=== PATIENT | male | born 1960 | race Caucasian/White ===

== ENCOUNTER → 2016-11-08 | Outpatient (CLI) | payer BC ==
[~2016-11-08] MED LIST: ADV250INH INH; ALBU17IN INH
[2016-11-08 11:03] LABS: MEAN CORPUSCULAR HEMOGLOBIN 28.6 pg (27.0-33.0); MEAN CORPUSCULAR HGB CONC 32.2 g/dl (32.0-36.5); MEAN CORPUSCULAR VOLUME 88.8 fl (80.0-96.0); RED CELL DISTRIBUTION WIDTH 12.6 % (11.5-14.5); WHITE BLOOD COUNT 7.8 K/mm3 (4.0-10.0)
[2016-11-08 11:24] LABS: ALBUMIN 3.8 GM/DL (3.2-5.2); ALBUMIN/GLOBULIN RATIO 1.19 (1.00-1.93); ALKALINE PHOSPHATASE 67 U/L (45-117); ALT/SGPT 34 U/L (12-78); ANION GAP 7 MEQ/L (8-16); AST/SGOT 24 U/L (15-37); BILIRUBIN,TOTAL 0.5 MG/DL (0.2-1.0); BLOOD UREA NITROGEN 15 MG/DL (7-18); CALCIUM LEVEL 8.5 MG/DL (8.5-10.1); CARBON DIOXIDE LEVEL 26 MEQ/L (21-32); CHLORIDE LEVEL 107 MEQ/L (98-107); CHOLESTEROL LEVEL 228 MG/DL (<200); CREATININE FOR GFR 0.97 MG/DL (0.70-1.30); GLOMERULAR FILTRATION RATE > 60.0 (>56); GLUCOSE, FASTING 87 MG/DL (70-105); POTASSIUM SERUM 4.7 MEQ/L (3.5-5.1); SODIUM LEVEL 140 MEQ/L (136-145); TRIGLYCERIDES LEVEL 195 MG/DL (<150)
== END ==
LOC: M LAB 09:55
PROVIDERS: ATTEND Physician Assistant
DX: R06.09 Other forms of dyspnea (principal); E78.2 Mixed hyperlipidemia; J44.9 Chronic obstructive pulmonary disease, unspecified; Z72.0 Tobacco use

== ENCOUNTER → 2018-01-23 | Outpatient (REF) | payer BC | LOC: M SFHCLERA 16:04 | DX: R10.9 Unspecified abdominal pain (principal) ==

== ENCOUNTER → 2018-01-23 | Outpatient (CLI) | payer BC | LOC: M LRY 15:42 | DX: R06.02 Shortness of breath (principal); J84.10 Pulmonary fibrosis, unspecified | CPT/HCPCS: 87086 ==

== ENCOUNTER → 2018-10-30 | Outpatient (CLI) | payer BC ==
[2018-10-30 10:40] LABS: BASO # 0.1 10^3/uL (0.0-0.2); BASO % 0.8 % (0.0-1.0); EOS # 0.3 10^3/uL (0.0-0.50); EOS % 3.5 % (0.0-3.0); HEMATOCRIT 51.3 % (42.0-52.0); HEMOGLOBIN 16.6 g/dl (13.5-17.5); LYMPH # 2.3 10^3/uL (1.5-4.5); LYMPH % 25.4 % (24.0-44.0); MEAN CORPUSCULAR HEMOGLOBIN 29.1 pg (27.0-33.0); MEAN CORPUSCULAR HGB CONC 32.4 g/dl (32.0-36.5); MEAN CORPUSCULAR VOLUME 89.8 fl (80.0-96.0); MONO # 0.7 10^3/uL (0.0-0.8); MONO % 7.6 % (0.0-5.0); NEUTROPHILS # 5.5 10^3/uL (1.8-7.7); NEUTROPHILS % 61.6 % (36.0-66.0); PLATELET COUNT, AUTOMATED 247 10^3/uL (150-450); RED BLOOD COUNT 5.71 10^6/uL (4.30-6.10)
[2018-10-30 11:11] LABS: ALT/SGPT 29 U/L (12-78); BILIRUBIN,TOTAL 0.6 MG/DL (0.2-1.0); BLOOD UREA NITROGEN 16 MG/DL (7-18); CALCIUM LEVEL 8.9 MG/DL (8.5-10.1); CARBON DIOXIDE LEVEL 30 MEQ/L (21-32); CHLORIDE LEVEL 106 MEQ/L (98-107); CHOLESTEROL LEVEL 230 MG/DL (<200); CHOLESTEROL RISK RATIO 5.111 (<5); CREATININE FOR GFR 1.04 MG/DL (0.70-1.30); GLOMERULAR FILTRATION RATE > 60.0 (>56); GLUCOSE, FASTING 92 MG/DL (70-100); HDL CHOLESTEROL 45 MG/DL (>40); LDL CHOLESTEROL 146.2 MG/DL (<100); NON-HDL-C 185 MG/DL; POTASSIUM SERUM 4.6 MEQ/L (3.5-5.1); SODIUM LEVEL 141 MEQ/L (136-145); TOTAL PROTEIN 6.7 GM/DL (6.4-8.2); TRIGLYCERIDES LEVEL 194 MG/DL (<150)
[2018-10-30 12:51] LABS: HEMOGLOBIN A1c 5.9 %
== END ==
LOC: M LAB 09:32
PROVIDERS: ATTEND Nurse Practitioner Family
DX: Z72.0 Tobacco use (principal)

== ENCOUNTER 2018-12-01 18:53 | Emergency (ER) | payer BC ==
[~2018-12-01] VITALS: Ht 162.6 cm; Wt 91.8 kg
[2018-12-01 19:55] LABS: BASO # 0.1 10^3/uL (0.0-0.2); BASO % 0.5 % (0.0-1.0); EOS # 0.7 10^3/uL (0.0-0.50); EOS % 6.9 % (0.0-3.0); HEMATOCRIT 49.6 % (42.0-52.0); HEMOGLOBIN 16.2 g/dl (13.5-17.5); LYMPH # 1.3 10^3/uL (1.5-4.5); LYMPH % 12.5 % (24.0-44.0); MEAN CORPUSCULAR HEMOGLOBIN 29.1 pg (27.0-33.0); MEAN CORPUSCULAR HGB CONC 32.7 g/dl (32.0-36.5); MEAN CORPUSCULAR VOLUME 89.2 fl (80.0-96.0); MONO # 0.8 10^3/uL (0.0-0.8); MONO % 7.5 % (0.0-5.0); NEUTROPHILS # 7.6 10^3/uL (1.8-7.7); NEUTROPHILS % 71.7 % (36.0-66.0); PLATELET COUNT, AUTOMATED 239 10^3/uL (150-450); RED BLOOD COUNT 5.56 10^6/uL (4.30-6.10); WHITE BLOOD COUNT 10.7 10^3/uL (4.0-10.0)
[2018-12-01 20:28] LABS: ALBUMIN 4.2 GM/DL (3.2-5.2); ALT/SGPT 38 U/L (12-78); BILIRUBIN,DIRECT 0.2 MG/DL (0.0-0.2); BILIRUBIN,TOTAL 0.6 MG/DL (0.2-1.0); BLOOD UREA NITROGEN 13 MG/DL (7-18); CALCIUM LEVEL 9.2 MG/DL (8.5-10.1); CARBON DIOXIDE LEVEL 30 MEQ/L (21-32); CHLORIDE LEVEL 105 MEQ/L (98-107); CPK CREATINE PHOSPHOKINASE 263 U/L (39-308); CREATININE FOR GFR 1.05 MG/DL (0.70-1.30); GLOMERULAR FILTRATION RATE > 60.0 (>56); GLUCOSE, FASTING 97 MG/DL (70-100); LIPASE 171 U/L (73-393); POTASSIUM SERUM 4.3 MEQ/L (3.5-5.1); SODIUM LEVEL 140 MEQ/L (136-145); TOTAL PROTEIN 6.8 GM/DL (6.4-8.2)
[2018-12-01] MEDS ORDERED: methylPREDNISolone INJ 125 MG/2 ML VIAL (J2930) IV ONE (20:30)
[2018-12-01 20:44] LABS: ERYTHROCYTE SEDIMENTATION RATE 1 mm/hr (0-20)
[2018-12-01] MEDS ORDERED: NS 1,000 ML IV ONE (21:45)
[2018-12-01] MEDS ORDERED: diphenhydrAMINE INJ 50MG/ML VIAL (J1200) IV ONE (21:45)
[2018-12-01] MEDS ORDERED: RANI15TA PO (22:52)
[2018-12-01] MEDS ORDERED: BENA25CA4 PO (22:52)
[2018-12-01] MEDS ORDERED: PRED20TA PO (22:52)
[2018-12-01 23:03] VITALS: BP 122/75
== END 2018-12-01 23:05 | disposition home or self-care (01) ==
LOC: M ED 18:53
DX: R21 Rash and other nonspecific skin eruption (principal); T50.995A Adverse effect of other drugs, medicaments and biological substances, initial encounter; X58.XXXA Exposure to other specified factors, initial encounter; Y92.89 Other specified places as the place of occurrence of the external cause; I10 Essential (primary) hypertension; J44.9 Chronic obstructive pulmonary disease, unspecified; J45.909 Unspecified asthma, uncomplicated; F41.9 Anxiety disorder, unspecified; E78.5 Hyperlipidemia, unspecified; Z79.899 Other long term (current) drug therapy
CPT/HCPCS: 80048; 80076; 82550; 83605; 83690; 85025; 85652; 86140; 87040; 99284; J1200; J2930

== ENCOUNTER → 2018-12-19 | Outpatient (CLI) | payer BC ==
[~2018-12-19] MED LIST changes: +BENA25CA4 PO; +PRED20TA PO; +RANI15TA PO
--- NOTE | 2018-12-19 16:32 | REP ---
Prostate sonography: History: Elevated PSA. Sonographic findings: Trans rectal prostate sonography demonstrates unremarkable seminal vesicles. Prostate gland is heterogeneously enlarged with calcifications and cystic changes noted. Glandular dimensions are measured at 4.9 x 3.3 x 6.0 cm with a calculated glandular volume of 42.4 ml. Transrectal sonographic guidance is provided to Dr. Willett who performed trans rectal ultrasound guided needle biopsy procedure . Electronically Signed by Eugene Sullivan MD 12/19/2018 04:23 P
== END ==
LOC: M SMT PRO 08:16
PROVIDERS: ATTEND Urology
DX: D40.0 Neoplasm of uncertain behavior of prostate (principal); R97.20 Elevated prostate specific antigen [PSA]
CPT/HCPCS: 76872; 76942; G0416

== ENCOUNTER → 2019-01-08 | Outpatient (CLI) | payer BC ==
--- NOTE | 2019-01-12 20:27 | SLEEPHOME ---
DATE OF PROCEDURE: 01/08/2019 ORDERED BY: Dr. Jeffers Diagnostic home sleep testing was performed due to concern for the obstructive sleep apnea syndrome in this patient with a history of excessive somnolence, irregular breathing in sleep and nonrestorative sleep. For testing a nocturnal T3 respiratory monitoring device was used. Continuous record was made of pulse, oxygen saturation, airflow, chest, abdominal strain and body position. 9 hours and 59 minutes of data were reviewed. There were 6 hours and 3 minutes marked as time in bed. During the interval marked time in bed, there were 95 respiratory events identified of 10 seconds in duration or greater for a respiratory event index of 15.7. The events were primarily obstructive. Baseline pulse rate 73, pulse rate ranged 57-199. Baseline saturation 89%. Lowest saturation seen 79%. Testing was performed in both the supine and nonsupine positions. IMPRESSION: Abnormal home sleep testing with repetitive respiratory events and oxygen desaturations to 79% with a respiratory event index of 15.7 is consistent with the obstructive sleep apnea syndrome. RECOMMENDATIONS: The patient should be encouraged to undergo a formal sleep evaluation.
== END ==
LOC: M SLEEP HO 11:33
PROVIDERS: ATTEND Internal Medicine Pulmonary Disease
DX: G47.30 Sleep apnea, unspecified (principal)

== ENCOUNTER → 2019-02-06 | Outpatient (CLI) | payer BC ==
--- NOTE | 2019-02-06 12:50 | REP ---
PET/CT: HISTORY: Solitary pulmonary nodule. COMPARISONS: Comparison CT study [facility] January 01, 2019 showed a 1.1 cm right upper lobe pulmonary nodule. TECHNIQUE: 45 minutes following the intravenous injection of a 9.33 mCi dose of F-18 FDG, three-dimensional PET scintigraphy is acquired from the skull base to the proximal thighs. Triplanar noncontrast CT scanning is acquired through the same anatomic range for attenuation correction, and image registration with scan parameters optimized to minimize radiation exposure to the patient. PET scintigraphy and CT datasets were fused and displayed on a workstation with multiplanar and projection display capability. PET/CT FINDINGS: There is no observable hypermetabolic uptake in the nodular opacity in the right upper lobe observed posteromedially adjacent to the mediastinum. This nodule is less visible on accompanying CT images than on the screening chest CT study from January 01. Maximum standard uptake value here is 1.18. There is a nodular opacity in the right inferior perihilar region of the right lower lobe, which is also not hypermetabolic. No discernible FDP accumulation is seen. This measures a centimeter in diameter. Maximum SUV value is 1.05. There is a granulomatous calcification in the left upper lobe and there are granulomatous calcifications in the spleen. There is no other abnormal hypermetabolic uptake within the thorax. In the abdomen and pelvis, there is normal distribution of radiotracer. No abnormal adrenal uptake is seen. There is some focally increased uptake just to the right of midline at the level of the anus. This may relate to hemorrhoids or anal inflammation or neoplasm. Maximum standard uptake value here is 7.26. Head and neck soft tissues are unremarkable. IMPRESSION: 1. There is no hypermetabolic uptake in the right upper lobe nodule. There is a second nodule visible in the right lower lobe perihilar region. This is also not metabolically active. There are granulomatous calcifications in the left upper lobe of the lung and in the spleen. 2. Incidental focus of hypermetabolic uptake is seen in the region of the anus, to the right of midline. This should be correlated clinically. Hemorrhoid, anal inflammation, or neoplasm could produce this finding. Electronically Signed by Eugene Sullivan MD 02/06/2019 02:24 P
== END ==
LOC: M PLARAD 08:31
PROVIDERS: ATTEND Internal Medicine Pulmonary Disease
DX: R91.1 Solitary pulmonary nodule (principal)
CPT/HCPCS: 78815; A9552

== ENCOUNTER → 2019-07-23 | Outpatient (CLI) | payer BC | LOC: M LRY 13:05 | PROVIDERS: ATTEND Physician Assistant | DX: R05 Cough (principal) ==

== ENCOUNTER → 2019-10-01 | Outpatient (CLI) | payer BC ==
[2019-10-02 14:06] LABS: PSA % FREE 16.2 % (.); PSA FREE 1.07 ng/mL; PSA TOTAL 6.6 ng/mL (0.0-4.0)
== END ==
LOC: M LAB 10:42
PROVIDERS: ATTEND Urology
DX: R97.20 Elevated prostate specific antigen [PSA] (principal)

== ENCOUNTER → 2019-12-10 | Outpatient (CLI) | payer BC ==
[2019-12-11 16:10] LABS: PSA TOTAL 3.7 ng/mL (0.0-4.0)
== END ==
LOC: M LAB 11:58
PROVIDERS: ATTEND Urology
DX: R97.20 Elevated prostate specific antigen [PSA] (principal)

== ENCOUNTER → 2020-05-07 | Outpatient (CLI) | payer BC ==
[~2020-05-07] MED LIST changes: +ALBU8.5H; +ATOR1TAB21; +BREO1INH3; +SERT50TA29; +SPIR1AER
== END ==
LOC: M LABSMTC 13:25
PROVIDERS: ATTEND Anesthesiology
DX: Z01.818 Encounter for other preprocedural examination (principal)
CPT/HCPCS: C9803; U0003

== ENCOUNTER 2020-05-12 07:07 | Day surgery (SDC) | payer BC ==
[~2020-05-12] VITALS: Ht 162.6 cm; Wt 93.4 kg
[~2020-05-12 07:07] MED LIST changes: +LIDOCAINE 2% 100MG/5ML SDV (FOR ANES.) As Ordered ONE; +NS 1,000 ML IV ONE; +propofoL 200 MG/20 ML VIAL As Ordered ONE
--- NOTE | 2020-05-12 08:15 | ROOR ---
Patient Name: Crow Jarvis Procedure Date: 05/12/2020 7:52 AM Date of : 1960 Age: 59 Room: [facility] Gender: Male Note Status: Finalized Procedure: Colonoscopy Indications: High risk colon cancer surveillance: Personal history of colonic polyps, Last colonoscopy: May 2015 Providers: George AMOS MD Referring MD: Becka CRAFT Requesting Provider: Medicines: Monitored Anesthesia Care Complications: No immediate complications. Procedure: Pre-Anesthesia Assessment: - The heart rate, respiratory rate, oxygen saturations, blood pressure, adequacy of pulmonary ventilation, and response to care were monitored throughout the procedure. The Colonoscope was introduced through the anus and advanced to the cecum, identified by appendiceal orifice and ileocecal valve. The colonoscopy was performed without difficulty. The patient tolerated the procedure well. The quality of the bowel preparation was good. Findings: The perianal and digital rectal examinations were normal. Multiple medium-mouthed diverticula were found in the sigmoid colon. Three sessile polyps were found in the descending colon. The polyps were diminutive in size. These polyps were removed with a cold snare. Resection and retrieval were complete. Small Internal Hemorrhoids. The exam was otherwise without abnormality on direct and retroflexion views. Impression: - Diverticulosis in the sigmoid colon. - Three diminutive polyps in the descending colon, removed with a cold snare. Resected and retrieved. - Small Internal Hemorrhoids. - The examination was otherwise normal on direct and retroflexion views. Recommendation: - Repeat colonoscopy in 3 - 5 years for surveillance based on pathology results. - Telephone endoscopist for pathology results in 2 weeks. George Amos MD George AMOS MD 05/12/2020 8:15:17 AM Electronically signed by George AMOS MD Number of Addenda: 0 Note Initiated On: 05/12/2020 7:52 AM Estimated Blood Loss: Estimated blood loss: none.
[2020-05-12 08:37] VITALS: BP 113/70
== END 2020-05-12 08:40 | disposition home or self-care (01) ==
LOC: M OPP 07:07
PROVIDERS: ATTEND Internal Medicine Gastroenterology
DX: Z12.11 Encounter for screening for malignant neoplasm of colon (principal); Z86.010 Personal history of colon polyps; R63.5 Abnormal weight gain; K57.30 Diverticulosis of large intestine without perforation or abscess without bleeding; K64.8 Other hemorrhoids; G47.30 Sleep apnea, unspecified; J44.9 Chronic obstructive pulmonary disease, unspecified; F17.210 Nicotine dependence, cigarettes, uncomplicated; Z79.899 Other long term (current) drug therapy

== ENCOUNTER → 2020-08-29 | Outpatient (CLI) | payer BC ==
[~2020-08-29] MED LIST changes: -ALBU8.5H; +ALBU8.5H INH; -ATOR1TAB21; +ATOR1TAB21 PO; -BREO1INH3; +BREO1INH3 INH; -LIDOCAINE 2% 100MG/5ML SDV (FOR ANES.) As Ordered ONE; -NS 1,000 ML IV ONE; -SERT50TA29; +SERT50TA29 PO; -SPIR1AER; +SPIR1AER INH; -propofoL 200 MG/20 ML VIAL As Ordered ONE
== END ==
LOC: M LABSMTC 13:00
PROVIDERS: ATTEND Anesthesiology
DX: Z01.812 Encounter for preprocedural laboratory examination (principal); Z20.822 Contact with and (suspected) exposure to COVID-19

== ENCOUNTER 2020-09-02 14:41 | Day surgery (SDC) | payer OTHER ==
[~2020-09-02] VITALS: Ht 162.6 cm; Wt 93.0 kg
[~2020-09-02 14:41] MED LIST changes: +LIDOCAINE 1% MDV 20ML VIAL SQ PRN; +LR 1,000 ML IV ONE; +ceFAZolin SOD 2 GM in IV 1 EA IV ONE
--- OUTSIDE RECORDS SUMMARY | 2020-09-02 14:44 | CCD | Continuity of Care Document ---
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 Name Role Phone Becka Durbin AUTM Problems Description No Information Available Social History Type Date Description Comments Sex Unknown ETOH Use Currently consumes alcohol Tobacco Use Start: Unknown End: Unknown Patient is a former smoker Allergies, Adverse Reactions, Alerts Description No Known Drug Allergies Medications Active Medications SIG Qnty Indications Ordering Provide r Date Keflex 500mg Capsules 4 tabs 1 hour prior to dental procedure 4caps Veronica Boyle MD 02/2021 Percocet 5-325mg Tablets 1-2 tabs every 4- 6 hours prn/pain 6tabs S92.335D Veronica Boyle MD 2020 Sertraline HCL 50mg Tablets Unknown Atorvastatin Calcium 20mg Tablets Unknown Breo Ellipta 200-25mcg/Inh Aerosol Unknown Spiriva Respimat 1.25mcg/Act Aerosol Unknown Albuterol Sulfate HFA 108(90Base) mcg/Act Aerosol Unknown Immunizations Description No Information Available Vital Signs Date Vital Result Comment 08/18/2020 3:48pm Height 62 inches 5'2" Weight 210.00 lb BMI (Body Mass Index) 38.4 kg/m2 Results Description No Information Available Procedures Date Code Description Status 08/26/2020 37761 Apply Splint Short Leg Completed 08/20/2020 86451 Apply Splint Short Leg Completed 08/18/2020 02342 X-Ray Ankle Complete Completed 08/18/2020 84443 Apply Splint Short Leg Completed Medical Devices Description No Information Available Encounters Type Date Location Provider Dx Diagnosis Office Visit 08/26/2020 10:30a [place] Veronica Boyle MD S8 2.62xA Disp fx of lateral malleolus of left fibula, init S93.05xA Dislocation of left ankle thuy int, initial encounter Office Visit 08/20/2020 5:00p [place] [facility] [place] S82.62xA Disp fx of lateral malleolus of left fibula, init S93.05xA Dislocation of left ankle thuy int, initial encounter Assessments Date Code Description Provider 08/26/2020 S82.62xA Displaced fracture o f lateral malleolus of left fibula, initial encounter for closed fracture Veronica Boyle MD 08/26/2020 S93.05xA Dislocation of left ankle joint, initial encounter Veronica Boyle MD 08/20/2020 S82.62xA Displaced fracture o f lateral malleolus of left fibula, initial encounter for closed fracture [facility] [place] 08/20/2020 S93.05xA Dislocation of left ankle joint, initial encounter [facility] [place] 08/18/2020 S82.62xA Displaced fracture o f lateral malleolus of left fibula, initial encounter for closed fracture [facility] [place] 08/18/2020 S93.05xA Dislocation of left ankle joint, initial encounter [facility] [place] Plan of Treatment Future Appointment(s):* 09/03/2020 12:20 pm - Veronica Boyle MD 08/26/2020 - Veronica Boyle MD* S82.62xA Displaced fracture of lateral malleolus of left fibula, initial encounter for closed fracture* New Orders:* Surgery, Ordered: 08/26/20 * Follow up:* post op * S93.05xA Dislocation of left ankle joint, initial encounter Functional Status Description No Information Available Mental Status Description No Information Available Referrals Description No Information Available
--- OUTSIDE RECORDS SUMMARY | 2020-09-02 14:45 | CCD | Continuity of Care Document ---
Author Author Crow BOYLE MD Organization Unknown Address [address] [place] [address], [address] [address] Phone [phone] Care Team Providers Care Vegetable Picker Name Role Phone Becka Durbin AUTM [phone] Problems Description No Information Available Social History [...] Information Available Procedures Date Code Description Status 08/20/2020 85346 Apply Splint Short Leg Completed 08/18/2020 12840 X-Ray Ankle Complete Completed 08/18/2020 44185 Apply Splint Short Leg Completed Medical Devices Description No Information Available Encounters Type Date Location Provider Dx Diagnosis Office Visit 08/20/2020 5:00p [facility] [place] S82.62xD Disp fx of lateral malleolus of l fibula, 7thD S93.05xD Dislocation of left ankle thuy int, subsequent encounter Office Visit 08/18/2020 3:15p [facility] [place] S82.62xA Disp fx of lateral malleolus of left fibula, init S93.05xA Dislocation of left ankle thuy int, initial encounter Assessments Date Code Description Provider 08/26/2020 S82.62xD Displaced fracture o f lateral malleolus of left fibula, subsequent encounter for closed fracture with routine healing Veronica Boyle MD 08/26/2020 S93.05xD Dislocation of left ankle joint, subsequent encounter Veronica Boyle MD 08/20/2020 S82.62xD Displaced fracture o f lateral malleolus of left fibula, subsequent encounter for closed fracture with routine healing [facility] [place] 08/20/2020 S93.05xD Dislocation of left ankle joint, subsequent encounter [facility] [place] 08/18/2020 S82.62xA Displaced fracture o f lateral malleolus of left fibula, initial encounter for closed fracture [facility] [place] 08/18/2020 S93.05xA Dislocation of left ankle joint, initial encounter [facility] [place] Plan of Treatment 08/26/2020 - Veronica Boyle MD* S82.62xD Displaced fracture of lateral malleolus of left fibula, subsequent encounter for closed fracture with routine healing* New Orders:* Surgery, Ordered: 08/26/20 * Follow up:* post op * S93.05xD Dislocation of left ankle joint, subsequent encounter Functional Status Description No Information Available Mental Status Description No Information Available Referrals Description No Information Available
--- OUTSIDE RECORDS SUMMARY | 2020-09-02 14:45 | CCD ---
Author Author [facility] Organization [facility] Address Unknown Phone Unavailable Care Team Providers Care Private Advisor Name Role Phone DRAZEK, I ELZBIETA PA Unavailable Unavailable DRAZEK, I ELZBIETA PA Unavailable Unavailable DRAZEK, I ELZBIETA PA Unavailable Unavailable DRAZEK, I ELZBIETA PA Unavailable Unavailable DRAZEK, I ELZBIETA PA Unavailable Unavailable DRAZEK, I ELZBIETA PA Unavailable Unavailable DRAZEK, I ELZBIETA PA Unavailable Unavailable DRAZEK, I ELZBIETA PA Unavailable Unavailable DRAZEK, I ELZBIETA PA Unavailable Unavailable DRAZEK, I ELZBIETA PA Unavailable Unavailable DRAZEK, I ELZBIETA PA Unavailable Unavailable DRAZEK, I ELZBIETA PA Unavailable Unavailable DRAZEK, I ELZBIETA PA Unavailable Unavailable DRAZEK, I ELZBIETA PA Unavailable Unavailable DRAZEK, I ELZBIETA PA Unavailable Unavailable DRAZEK, I ELZBIETA PA Unavailable Unavailable DRAZEK, I ELZBIETA PA Unavailable Unavailable DRAZEK, I ELZBIETA PA Unavailable Unavailable DRAZEK, I ELZBIETA PA Unavailable Unavailable DRAZEK, I ELZBIETA PA Unavailable Unavailable DRAZEK, I ELZBIETA PA Unavailable Unavailable DRAZEK, I ELZBIETA PA Unavailable Unavailable DRAZEK, I ELZBIETA PA Unavailable Unavailable DRAZEK, I ELZBIETA PA Unavailable Unavailable DRAZEK, I ELZBIETA PA Unavailable Unavailable DRAZEK, I ELZBIETA PA Unavailable Unavailable DRAZEK, I ELZBIETA PA Unavailable Unavailable DRAZEK, I ELZBIETA PA Unavailable Unavailable DRAZEK, I ELZBIETA PA Unavailable Unavailable AZEK, I ELZBIETA PA Unavailable Unavailable Nino Boyle MD Unavailable Unavailable Nino Boyle MD Unavailable Unavailable VanNino garcia MD Unavailable Unavailable Nino Boyle MD Unavailable Unavailable Nino Boyle MD Unavailable Unavailable Nino Boyle MD Unavailable Unavailable Nino Boyle MD Unavailable Unavailable Nino Boyle MD Unavailable Unavailable Nino Boyle MD Unavailable Unavailable Nino Boyle MD Unavailable Unavailable Nino Boyle MD Unavailable Unavailable Nino Boyle MD Unavailable Unavailable Nino Boyle MD Unavailable Unavailable Nino Boyle MD Unavailable Unavailable Nino Boyle MD Unavailable Unavailable Nino Boyle MD Unavailable Unavailable Nino Boyle MD Unavailable Unavailable Nino Boyle MD Unavailable Unavailable Nino Boyle MD Unavailable Unavailable Nino Boyle MD Unavailable Unavailable Nino Boyle MD Unavailable Unavailable Nino Boyle MD Unavailable Unavailable Nino Boyle MD Unavailable Unavailable Nino Boyle MD Unavailable Unavailable Nino Boyle MD Unavailable Unavailable Nino Boyle MD Unavailable Unavailable Nino Boyle MD Unavailable Unavailable Nino Boyle MD Unavailable Unavailable Nino Boyle MD Unavailable Unavailable Nino Boyle MD Unavailable Unavailable Nino Boyle MD Unavailable Unavailable Nino Boyle MD Unavailable Unavailable Nino Boyle MD Unavailable Unavailable Nino Boyle MD Unavailable Unavailable Nino Boyle MD Unavailable Unavailable Nino Boyle MD Unavailable Unavailable Nino Boyle MD Unavailable Unavailable Nino Boyle MD Unavailable Unavailable Nino Boyle MD Unavailable Unavailable Nino Boyle MD Unavailable Unavailable Nino Boyle MD Unavailable Unavailable Nino Boyle MD Unavailable Unavailable Jeffers, Joel Hopkins MD Unavailable Unavailable Jeffers, Joel Hopkins MD Unavailable Unavailable Jeffers, Joel Hopkins MD Unavailable Unavailable Jeffers, Joel Hopkins MD Unavailable Unavailable Jeffers, Joel Hopkins MD Unavailable Unavailable Jeffers, Joel Hopkins MD Unavailable Unavailable Jeffers, Joel Hopkins MD Unavailable Unavailable Jeffers, Joel Hopkins MD Unavailable Unavailable Jeffers, Joel Hopkins MD Unavailable Unavailable Jeffers, Joel Hopkins MD Unavailable Unavailable Jeffers, Joel Hopkins MD Unavailable Unavailable Jeffers, Joel Hopkins MD Unavailable Unavailable Jeffers, Joel Hopkins MD Unavailable Unavailable Jeffers, Joel Hopkins MD Unavailable Unavailable Jeffers, Joel Hopkins MD Unavailable Unavailable Jeffers, Joel Hopkins MD Unavailable Unavailable Jeffers, Joel Hopkins MD Unavailable Unavailable Jeffers, Joel Hopkins MD Unavailable Unavailable Jeffers, Joel Hopkins MD Unavailable Unavailable Jeffers, Joel Hopkins MD Unavailable Unavailable Jeffers, Joel Hopkins MD Unavailable Unavailable Jeffers, Joel Hopkins MD Unavailable Unavailable Jeffers, Joel Hopkins MD Unavailable Unavailable Jeffers, Joel Hopkins MD Unavailable Unavailable Jeffers, Joel Hopkins MD Unavailable Unavailable Jeffers, Joel Hopkins MD Unavailable Unavailable Jeffers, Joel Hopkins MD Unavailable Unavailable Jeffers, oJel Hopkins MD Unavailable Unavailable Jeffers, Joel Hopkins MD Unavailable Unavailable Jeffers, Joel Hopkins MD Unavailable Unavailable Jeffers, Joel Hopkins MD Unavailable Unavailable Jeffers, Joel Hopkins MD Unavailable Unavailable Jeffers, Joel Hopkins MD Unavailable Unavailable Jeffers, Joel Hopkins MD Unavailable Unavailable Jeffers, Joel Hopkins MD Unavailable Unavailable Jeffers, Joel Hopkins MD Unavailable Unavailable Jeffers, Joel Hopkins MD Unavailable Unavailable Jeffers, Joel Hopkins MD Unavailable Unavailable Jeffers, Joel Hopkins MD Unavailable Unavailable Jeffers, Joel Hopkins MD Unavailable Unavailable Jeffers, Joel Hopkins MD Unavailable Unavailable JeffersJoel MD Unavailable Unavailable Joel Jeffers MD Unavailable Unavailable Zeyad, Joel Hopkins MD Unavailable Unavailable Jeffers, Joel Hopkins MD Unavailable Unavailable Jeffers, Joel Hopkins MD Unavailable Unavailable Jeffers, Joel Hopkins MD Unavailable Unavailable Jeffers, Joel Hopkins MD Unavailable Unavailable JeffersJoel MD Unavailable Unavailable Jeffers, Joel Hopkins MD Unavailable Unavailable Joel Jeffers MD Unavailable Unavailable Pavel Kennedy MD Unavailable Unavailable Pavel Kennedy MD Unavailable Unavailable Pavel Kennedy MD Unavailable Unavailable Clarence Jean DO Unavailable Unavailable Clarence Jean DO Unavailable Unavailable Clarence Jean DO Unavailable Unavailable Clarence Jean DO Unavailable Unavailable Jeffers, Joel Hopkins MD Unavailable Unavailable Jeffers, Joel Hopkins MD Unavailable Unavailable Joel Jeffers MD Unavailable Unavailable Jeffers, Joel Hopkins MD Unavailable Unavailable Jeffers, Joel Hopkins MD Unavailable Unavailable JeffersJoel MD Unavailable Unavailable Jeffers, Joel Hopkins MD Unavailable Unavailable Jeffers, Joel Hopkins MD Unavailable Unavailable Jeffers, Joel Sandeep MD Unavailable Unavailable Jeffers, Joel Hopkins MD Unavailable Unavailable Jeffers, Joel Hopkins MD Unavailable Unavailable Jeffers, Joel Hopkins MD Unavailable Unavailable Jeffers, Joel Hopkins MD Unavailable Unavailable Jeffers, Joel Hopkins MD Unavailable Unavailable Jeffers, Joel Hopkins MD Unavailable Unavailable Jeffers, Joel Hopkins MD Unavailable Unavailable Jeffers, Joel Hopkins MD Unavailable Unavailable Jeffers, Joel Hopkins MD Unavailable Unavailable Jeffers, Joel Hopkins MD Unavailable Unavailable Jeffers, Joel Hopkins MD Unavailable Unavailable Jeffers, Joel Hopkins MD Unavailable Unavailable Jeffers, Joel Hopkins MD Unavailable Unavailable Jeffers, Joel Hopkins MD Unavailable Unavailable Jeffers, Joel Hopkins MD Unavailable Unavailable Jeffers, Joel Hopkins MD Unavailable Unavailable Jeffers, Joel Hopkins MD Unavailable Unavailable Jeffers, Joel Hopkins MD Unavailable Unavailable Jeffers, Joel Hopkins MD Unavailable Unavailable Jeffers, Joel Hopkins MD Unavailable Unavailable Jeffers, Joel Hopkins MD Unavailable Unavailable Jeffers, Joel Hopkins MD Unavailable Unavailable Jeffers, Joel Hopkins MD Unavailable Unavailable Jeffers, Joel Hopkins MD Unavailable Unavailable Jeffers, Joel Hopkins MD Unavailable Unavailable Jeffers, Joel Hopkins MD Unavailable Unavailable Jeffers, Joel Hopkins MD Unavailable Unavailable Jeffers, Joel Hopkins MD Unavailable Unavailable Jeffers, Joel Hopkins MD Unavailable Unavailable Jeffers, Joel Hopkins MD Unavailable Unavailable Jeffers, Joel Hopkins MD Unavailable Unavailable Jeffers, Joel Hopkins MD Unavailable Unavailable Jeffers, Joel Hopkins MD Unavailable Unavailable Jeffers, Joel Hopkins MD Unavailable Unavailable Jeffers, Joel Hopkins MD Unavailable Unavailable Jeffers, Joel Hopkins MD Unavailable Unavailable Jeffers, Joel Hopkins MD Unavailable Unavailable Jeffers, Joel Hopkins MD Unavailable Unavailable Jeffers, Joel Hopkins MD Unavailable Unavailable Jeffers, Joel Hopkins MD Unavailable Unavailable Jeffers, Joel Hopkins MD Unavailable Unavailable Jeffers, Joel Hopkins MD Unavailable Unavailable Re-disclosure Warning The records that you are about to access may contain information from federally-assisted alcohol or drug abuse programs. If such information is present, then the following federally mandated warning applies: This information has been disclosed to you from records protected by federal confidentiality rules (42 CFR part 2). The federal rules prohibit you from making any further disclosure of this information unless further disclosure is expressly permitted by the written consent of the person to whom it pertains or as otherwise permitted by 42 CFR part 2. A general authorization for the release of medical or other information is NOT sufficient for this purpose. The Federal rules restrict any use of the information to criminally investigate or prosecute any alcohol or drug abuse patient.The records that you are about to access may contain highly sensitive health information, the redisclosure of which is protected by Article 27-F of the [place] Public Health law. If you continue you may have access to information: Regarding HIV / AIDS; Provided by facilities licensed or operated by the [facility] Office of Mental Health; or Provided by the [facility] Office for People With Developmental Disabilities. If such information is present, then the following [facility] mandated warning applies: This information has been disclosed to you from confidential records which are protected by state law. State law prohibits you from making any further disclosure of this information without the specific written consent of the person to whom it pertains, or as otherwise permitted by law. Any unauthorized further disclosure in violation of state law may result in a fine or penitentiary sentence or both. A general authorization for the release of medical or other information is NOT sufficient authorization for further disc losure. Allergies and Adverse Reactions Type Description Substance Reaction Status Data Source(s ) Drug allergy Drug allergy terbinafine (From Lamisil AT) Unknown React ion [facility] Drug allergy Drug allergy starch (From Lamisil AT) Unknown Reaction [facility] Drug allergy Drug allergy talc (From Lamisil AT) Unknown Reaction [facility] Terbinafine Terbinafine terbinafine 250 MG Oral Tablet blisters/red Active eCW1 ([facility]) Terbinafine Terbinafine terbinafine 250 MG Oral Tablet blisters/red Active eCW1 ([facility]) Family History Family Member Name Family Member Gender Family Member Status Date o f Status Description Data Source(s) Unknown Unknown Problem [facility] ([facility]) Unknown Unknown Problem [facility] ([facility] Unknown Male Problem [facility] ([facility]) suddenly - suspected to be cardiova scular Encounters Encounter Providers Location Date Indications Data Source(s ) Outpatient Attender: Nino Boyle MD Physical Therap y 08/26/2020 09:30:00 AM EST [facility] ([facility]) OFFICE OUTPATIENT VISIT 15 MINUTES Attender: ELZBIETA RED Phys ical Therapy 08/20/2020 04:00:00 PM EST [facility] ([facility]) OFFICE OUTPATIENT NEW 30 MINUTES Attender: ELZBIETA RED Physic al Therapy 08/18/2020 02:15:00 PM EST [facility] ([facility]) Emergency Attender: Clarence Jean DOAttender: Cristo muro MD CPSCAORT-ED 08/14/2020 04:24:00 PM EST - 08/14/2020 10:00:00 PM EST ANKLE INJURY [facility] ANKLE INJURY Patient discharged. Outpatient Attender: Sandeep Ordonez/Suresh/Lico/Pippa hernandezl 06/03/2020 07:45:00 AM EST [facility] ([facility]) Unknown [address] [id number] 04/23/2020 12:00:00 AM EDT eCW1 ([facility]) Unknown [address] [id number] 12/13/2019 12:00:00 AM EDT eCW1 ([facility]) Outpatient Referrer: Sandeep Jeffers MD 11/28/2019 03:19:0 0 PM EDT [facility] Outpatient Referrer: Sandeep Jeffers MD 11/26/2019 08:21:0 0 AM EDT [facility] Outpatient Referrer: Sandeep Jeffers MD 11/23/2019 10:53:0 0 AM EDT [facility] Outpatient Referrer: Sandeep Jeffers MD 11/02/2019 12:21:0 0 PM EDT [facility] Outpatient Referrer: Sandeep Jeffers MD 10/31/2019 10:24:0 0 AM EDT [facility] Outpatient Referrer: Sandeep Jeffers MD 10/31/2019 10:23:0 0 AM EDT [facility] Outpatient Referrer: Sandeep Jeffers MD 10/08/2019 02:59:0 0 PM EDT [facility] [address] [address] 10/05/2019 12:00:00 AM EDT eCW1 ([facility]) [facility] [address] [id number] 10/04/2019 12:00:00 AM EDT eCW1 ([facility]) [facility] [address] [id number] 10/03/2019 12:00:00 AM EDT eCW1 ([facility]) [facility] [address] [address] 10/01/2019 12:00:00 AM EDT eCW1 ([facility]) Outpatient Referrer: Sandeep Jeffers MD 09/18/2019 03:28:0 0 PM EDT [facility] Outpatient Referrer: Sandeep Jeffers MD 09/18/2019 03:27:0 0 PM EDT [facility] [address] [place] [phone] 09/17/2019 12:00:00 AM EDT eCW1 ([facility]) [facility] [address] [place] [phone] 09/17/2019 12:00:00 AM EDT eCW1 ([facility]) [facility] [address] [place] [phone] 08/14/2019 12:00:00 AM EST eCW1 ([facility]) [facility] [address] [place] [phone] 08/14/2019 12:00:00 AM EST eCW1 ([facility]) [facility] [address] [place] [phone] 07/30/2019 12:00:00 AM EST eCW1 ([facility]) [facility] [address] [address] 07/23/2019 12:00:00 AM EST eCW1 ([facility]) [facility] [address] [place] [phone] 07/09/2019 12:00:00 AM EST eCW1 ([facility]) Medications Medication Brand Name Start Date Product Form Dose Route Admi nistrative Instructions Pharmacy Instructions Status Indications Reaction Description Data Source(s) Cephalexin 500 MG Oral Capsule [Keflex] Keflex 08/18/2020 12:00:00 AM EST active [facility] ([facility]) Acetaminophen 325 MG / Oxycodone Hydrochloride 5 MG Or al Tablet [Percocet] Percocet 08/18/2020 12:00:00 AM EST active MED[facility] ([facility]) 60 ACTUAT Albuterol 0.09 MG/ACTUAT Metered Dose Inhaler Albu terol Sulfate HFA 05/29/2020 12:00:00 AM EST RESPIRATORY active MEDENT ([facility], ) 30 ACTUAT fluticasone furoate 0.2 MG/ACT UAT / vilanterol 0.025 MG/ACTUAT Dry Powder Inhaler [Breo] Breo Ellipta 12/10/2019 12:00:00 AM EDT RESPIRATORY active MEDENT ([facility], ) Sertraline 50 MG Oral Tablet Sertraline HCl 50 MG Sertraline HCl 50 MG 10/04/2019 12:00:00 AM EDT 1.0 {tablet} active Sertraline HCl 50 MG eCW1 ([facility]) Sertraline 50 MG Oral Tablet Sertraline HCl 50 MG Sertraline HCl 50 MG 10/04/2019 12:00:00 AM EDT active 1 tablet eCW1 ([facility]) Sertraline 50 MG Oral Tablet Sertraline HCl 50 MG Sertraline HCl 50 MG 10/04/2019 12:00:00 AM EDT 1.0 {tablet} active Sertraline HCl 50 MG eCW1 ([facility]) Suprep Bowel Prep Kit Suprep Bowel Prep Kit 09/24/2019 12:00:00 AM EDT active MED[facility] ([facility], ) Magnesium Hydroxide 80 MG/ML Oral Suspension Milk Of Magnesi a 09/24/2019 12:00:00 AM EDT ORAL active M EDENT ([facility], ) Doxycycline Monohydrate 100 MG Oral Capsule Doxycycline Mcleod hydrate 100 MG 07/23/2019 12:00:00 AM EST suspended 1 capsule eCW1 ([facility]) PredniSONE 10 MG PredniSONE 10 MG 07/23/2019 12:00:00 AM EST active 4 tabs qday x 3, 3 tab qday x 3, 2 tabs qday x 3, 1 ta b qday x 3 days eCW1 ([facility]) Doxycycline Monohydrate 100 MG Oral Capsule Doxycycline Mcleod hydrate 100 MG 07/23/2019 12:00:00 AM EST active 1 capsule eCW1 ([facility]) Prednisone 10 MG Oral Tablet PredniSONE 10 MG PredniSONE 10 MG 07/23/2019 12:00:00 AM EST suspended 4 tabs qday x 3, 3 tab qday x 3, 2 tabs qday x 3, 1 tab qday x 3 days eCW1 ([facility]) Prednisone 10 MG Oral Tablet PredniSONE 10 MG PredniSONE 10 MG 07/23/2019 12:00:00 AM EST suspended Predn iSONE 10 MG eCW1 ([facility]) Doxycycline Monohydrate 100 MG Oral Capsule Doxycycline Mcleod hydrate 100 MG 07/23/2019 12:00:00 AM EST 1.0 {capsule} suspend ed Doxycycline Monohydrate 100 MG eCW1 ([facility]) Doxycycline Monohydrate 100 MG Oral Capsule Doxycycline Mcleod hydrate 100 MG 07/23/2019 12:00:00 AM EST 1.0 {capsule} suspend ed Doxycycline Monohydrate 100 MG eCW1 ([facility]) Prednisone 10 MG Oral Tablet PredniSONE 10 MG PredniSONE 10 MG 07/23/2019 12:00:00 AM EST suspended Predn iSONE 10 MG eCW1 ([facility]) Insurance Providers Payer name Policy type / Coverage type Policy ID Covered democrat ID Covered democrat's relationship to anand Policy Anand Plan Information CARE WORKS [id number] SP [id number] [employer] [id number] SP [id number] BCBS MATE[place]Z O [id number] SP [id number] [place] 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 [id number] [facility] [id number] 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 [id number] [employer] [place] [id number] 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 [id number] [employer] BCBS B [id number] S [id number] EXCE[employer] BC-BS PPO [id number] SP [id number] BCBS [place] HMO [id number] SP [id number] [employer] BC-BS PPO [id number] SP [id number] BCBS [place] HMO [id number] SP [id number] BS [place] Commercial [id number] Self [id number] ANSI-Commercial [id number] EXCELLUS C [id number] Self [id number] [employer] Health Maintenance Organization (HMO) [id number] Self [id number] BC/BS Family Health Plus Medigap Part B [id number] Self [id number] Excell[employer] BCBS Health Maintenance Organization (HMO) [id number] Family Dependent [id number] ANSI-Commercial [id number] ANSI-Commercial [id number] ANSI-Commercial [id number] BS [employer] [id number] Self [id number] ANSI-Commercial [id number] BS [employer] Commercial [id number] Self [id number] ANSI-Commercial [id number] [employer]/[place] Commercial [id number] Self [id number] BCBS [employer] U/[place] Commercial [id number] Self [id number] ANSI-Commercial [id number] ANSI-Commercial [id number] HMO BLUE [id number] SP [id number] HMO BLUE [id number] SP [id number] BCBS Excell[employer] Ppo U/W Commercial [id number] Self [id number] BS [place] Commercial [id number] Self [id number] [place]BS [place] PPO 302/307 [id number] SP [id number] HMO BLUE [id number] EXCELLUS BC-BS PPO 306 [id number] BCBS [place] PPO 302/307 [id number] SP [id number] HMO BLUE [id number] SP [id number] [facility] PLAN [id number] SP [id number] [place] [id number] SP [id number] HMO BLUE [id number] SP [id number] BCBS [place] PPO 302/307 [id number] SP [id number] Surgeries/Procedures Procedure Description Date Indications Data Source(s) Apply Splint Short Leg 08/26/2020 12:00:00 AM EST [facility] ([facility]) Apply Splint Short Leg 08/20/2020 12:00:00 AM EST [facility] ([facility]) Apply Splint Short Leg 08/18/2020 12:00:00 AM EST [facility] ([facility]) RADEX ANKLE COMPLETE MINIMUM 3 VIEWS 08/18/2020 12:00: 00 AM EST [facility] ([facility]) FX Lateral Malleolus (Distal Fibula) W/O Manipulation 08/18/2020 12:00:00 AM EST [facility] ([facility]) RADEX ANKLE COMPLETE MINIMUM 3 VIEWS X-RAY EXAM OF ANKLE 10/2020 12:00:00 AM [facility] [address] X-RAY EXAM CHEST 1 VIEW 08/14/2020 12:00:00 AM [facility] ECG ROUTINE ECG W/LEAST 12 LDS TRCG ONLY W/O I&R ELECTROCARD IOGRAM TRACING 08/14/2020 12:00:00 AM [facility] ANTIBODY SCREEN RBC EACH SERUM TECHNIQUE RBC ANTIBODY SCREEN 08/14/2020 12:00:00 AM [facility] [address] SARS-COV-2 COVID-19 AMP PRB 08/14/2020 12:00:00 AM [facility] THROMBOPLASTIN TIME PARTIAL PLASMA/WHOLE BLOOD THROMBOPLASTI N TIME PARTIAL 08/14/2020 12:00:00 AM [facility] PROTHROMBIN TIME PROTHROMBIN TIME 08/14/2020 12:00:00 AM [facility] BLOOD COUNT COMPLETE AUTO&AUTO DIFRNTL WBC COUNT COMPLETE CB C W/AUTO DIFF WBC 08/14/2020 12:00:00 AM [facility] COMPREHENSIVE METABOLIC PANEL COMPREHEN METABOLIC PANEL 10/2020 12:00:00 AM [facility] Non-covered item or service NON-COVERED ITEM OR SERVICE 10/2020 12:00:00 AM [facility] Injection, propofol, 10 mg 08/14/2020 12:00:00 AM [facility] Injection, fentanyl citrate, 0.1 mg 08/14/2020 12:00:0 0 AM [facility] Injection, hydromorphone, up to 4 mg 08/14/2020 12:00: 00 AM [facility] [address] MOD SED SAME PHYS/QHP EA 08/14/2020 12:00:00 AM [facility] [address] MOD SED SAME PHYS/QHP 5/>YRS 08/14/2020 12:00:00 AM [facility] COLLECTION VENOUS BLOOD VENIPUNCTURE ROUTINE VENIPUNCTURE 12:00:00 AM [facility] ARTHROCENTESIS ASPIR&/INJECTION INTERM JT/BURSA DRAIN/INJ ALBERTO INT/BURSA W/O US 08/14/2020 12:00:00 AM [facility] EMERGENCY DEPT VISIT HIGH SEVERITY&THREAT FUNJ EMERGENCY DE PT VISIT 08/14/2020 12:00:00 AM [facility] Colonoscopy W/ Poly 05/12/2020 12:00:00 AM EST TUAN ([facility], ) NEB/MDI RX INITIAL 07/23/2019 12:00:00 AM EST [facility] ([facility]) Albuterol, inhalation solution, fda-appr michelle final product, non-compounded, administered through dme, unit dose, 1 mg 07/23/2019 12:00:00 AM EST [facility] ([facility]) Ipratropium bromide, inhalation solution , fda-approved final product, non- compounded, administered through dme, unit dose form, per milligram 07/23/2019 12:00:00 AM [place] [id number] ([facility]) Results ID Date Data Source [id number] 08/29/2020 12:35:00 PM [facility] Name Value Range Interpretation Code Description Data Kavya rce(s) Supporting Document(s) SARS coronavirus 2 RNA Not Detected [facility] This lab was ordered by [facility] and reported by [facility]. ID Date Data Source [id number] 08/14/2020 04:24:00 PM [facility] Name: BETY JARVIS [facility] Rec #: [id number] 0 : 1960 Age/Sex: 60M Date of Service: 08/14/20 PHYSICIAN CHART Physician Documentation [facility] Name: Bety Jarvis Age: 60 yrs Sex: Male : 1960 Arrival Date: 08/14/2020 Time: 16:24 Bed 1 Private MD: Shanna Out of ED Physician Clarence Jean HPI: 08/14 16:27 This 60 yrs old Male presents to ER with complaints of left jam2 ankle pain. 16:27 The patient presents with decreased range of motion, a jam2 deformity, an injury, pain, swelling, tenderness. The co mplaints affect the left ankle. Onset: The symptoms/episode began/occurred just prior to arrival. Context: resulted from mis-step into [employer] truck. Associated signs and symptoms: Pertinent negatives: numbness, tingling, weakness. Modifying factors: The symptoms are alleviated by OTC meds, the symptoms are aggravated by weight bearing, movement. Severity of symptoms: At their worst the symptoms were moderate, in the emergency department the symptoms are unchanged. The patient was offered pain meds while waiting - pain meds were given. The patient has not experienced similar symptoms in the past. Historical: - Allergies: Lamisil AT; Rash; - PMHx: Chronic obstructive lung disease; - PSHx: Hernia repair; Circumcision; - Med Reconciliation:: Yellow Alert: The patient's home medication list is partly complete. However, additional information is required to complete list. Medications reviewed, completed by nurse verbally from patient/family. - Immunization history: Patient is not sure when last tetanus shot was. - Advance directive: There is no existing advanced directive. Information offered. - Family History:: mother : unknown medical history. Father : unknown medical history. - Social History: Smoking status (Tobacco): Patient states they are a former tobacco smoker, quit smoking Quit 1 week ago, Smoked 1 PPD ago. Preferred Language: [place]. ROS: 16:31 Constitutional: Negative for fever, chills. Cardiovascular: jam2 Negative for chest pain. MS/extremity: Positive for decreased range of motion, deformity, pain, swelling, tenderness. All other systems are negative. Exam: 16:31 Constitutional: This is a well developed, well nourished jam2 patient who is awake, alert, and in no acute distress. 16:31 Constitutional: This is a well developed, well nourished patient who is awake, alert, and in no acute distress. Head/Face: Normocephalic, atraumatic. Eyes: Pupils equal round and reactive to light, extra-ocular motions intact. Conjunctiva and sclera are non-icteric and not injected. Periorbital areas with no swelling, redness, or edema. ENT: Oropharynx with no redness, swelling, or masses, exudates, or evidence of obstruction, uvula midline. Mucous membranes moist. Cardiovascular: Regular rate and rhythm with a normal S1 and S2. No gallops, murmurs, or rubs. No JVD. No pulse deficits. Respiratory: Lungs have equal breath sounds bilaterally, clear to auscultation. No rales, rhonchi or wheezes noted. No increased work of breathing, no retractions or nasal flaring. Abdomen/GI: Soft, non-tender, with normal bowel sounds. No distension. No rebound, rigidity, or guarding. No organomegaly. Skin: Warm, dry with normal turgor. Normal color with no rashes, no lesions, and no evidence of cellulitis. Psych: Awake, alert, with orientation to person, place and time. Behavior, mood, and affect are within normal limits. 16:31 Musculoskeletal/extremity: Circulation is intact in all extremities. Sensation intact. Left ankle severely deformed and angulated with the entire foot rotated laterally. Intact distal pulses sensation and strength. Vital Signs: 16:36 BP 131 / 83; Pulse 68; Resp 17; Pulse Ox 93% 0 lpm ; cmf 18:36 BP 128 / 81; Pulse 72; Resp 14; Pulse Ox 95% ; tb7 19:23 BP 124 / 69; Pulse 69; Resp 14; Pulse Ox 97% on R/A; tb7 19:53 BP 139 / 70; Pulse 71; Resp 17; Temp 97.8(TE); Pulse Ox 97% tb7 on 2 lpm NC; Pain 7/10; 20:04 BP 108 / 77; Pulse 69; Resp 17; Pulse Ox 97% on 2 lpm NC; tb7 20:04 BP 107 / 73; Pulse 71; Resp 16; Pulse Ox 96% on 4 lpm NC; tb7 20:09 BP 143 / 71; Pulse 75; Resp 20; Pulse Ox 96% on 4 lpm NC; tb7 20:11 BP 132 / 78; Pulse 79; Resp 23; Pulse Ox 95% on 4 lpm NC; tb7 20:14 BP 132 / 78; Pulse 79; Resp 23; Pulse Ox 95% on 4 lpm NC; tb7 20:19 BP 134 / 81; Pulse 69; Resp 15; Pul se Ox 97% on 4 lpm NC; tb7 20:23 BP 128 / 80; Pulse 72; Resp 18; Pulse Ox 97% on 4 lpm NC; tb7 20:29 BP 129 / 76; Pulse 74; Resp 14; Pulse Ox 95% on R/A; tb7 20:34 BP 111 / 68; Pulse 76; Resp 15; Pulse Ox 95% on 4 lpm NC; tb7 20:37 Weight 92.99 kg (R); Height 5 ft. 1 in. (154.94 cm) (R); tb7 20:41 BP 132 / 85; Pulse 77; Resp 18; Pulse Ox 97% on 4 lpm NC; tb7 20:46 BP 130 / 74; Pulse 74; Resp 17; Pulse Ox 96% on 2 lpm NC; tb7 20:51 BP 134 / 91; Pulse 74; Resp 18; Pulse Ox 96% on R/A; tb7 20:56 BP 143 / 78; Pulse 74; Resp 17; Pulse Ox 95% on R/A; Pain tb7 0/10; 21:06 BP 134 / 79; Pulse 74; Resp 20; Pulse Ox 94% on R/A; Pain tb7 0/10; 21:21 BP 134 / 80; Pulse 68; Resp 18; Temp 97.7(TE); Pulse Ox 95% tb7 on R/A; Pain 0/10; 20:37 Body Mass Index 38.73 (92.99 kg, 154.94 cm) tb7 20:04 TCO2 44 tb7 20:09 ETCO2 15 tb7 20:19 ETCO2 24 tb7 20:23 ETCO2 16 tb7 20:29 ETCO2 12 tb7 20:34 ETCO2 45 tb7 20:46 ETCO2 27 tb7 20:51 ETCO2 40 tb7 20:56 ETCO2 40 tb7 Procedures: 17:01 Joint Treatment: injection of left ankle using Lidocaine, jam2 Removed bloody fluid, Patient tolerated well. I performed a hematoma block by injecting 8cc of 1% lidocaine without epinephrine into the medial left ankle. Complications were none. Patient tolerated procedure well. Reduction: of the left ankle, using traction, manipulation, Immobilized with Splint. Patient tolerated well. Post reduction film - reveals improved alignment. 20:43 Pre-procedure: Informed consent obtained, ASA physical rc3 classification: II - mild/mod systemic disease that does not interfere with daily routines, Airway assessment: able to hyperextend neck, able to maintain airway, can open mouth without difficulty, Mallampati classification of tongue size: II - faucial pillars and soft palate can be visualized, but uvula is masked by the base of the tongue, Medications employed: Ketamine and propofol see sedation summary sheet, Post-procedure assessment: the patient is moderately sedated, a reversal agent was not used. MDM: 16:25 Patient medically screened. jam2 18:47 Data reviewed: vital signs, nurses notes, lab test jam2 result(s), EKG, radiologic studies, CT scan, plain films. ECG: The ECG on this patient demonstrates no evidence of ischemia, normal sinus rhythm. ED course: The patient has been stable while here. He comes in with a mechanical misstep while getting into his [employer] truck with a obviously angulated, fracture left ankle. He was neurovascularly intact. I did reduce the fracture with improved alignment. The remainder of his work-up is unremarkable. No other injuries. Plan will be to consult orthopedics for definitive management. 19:24 ED course: Portable chest x-ray read: Negative. Left ankle rc3 x-ray read: There is fracture subluxation of the ankle with lateral subluxation of the talus fracture involves the lateral malleolus. Repeat left ankle x-ray after reduction: Casted fracture subluxation with persistent subluxation. All images also reviewed by me.. 19:26 ECG: The ECG on this patient demonstrates Other Normal 3 sinus rhythm, rate 64, normal axis, levels with no ST elevations or depressions. 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 Was stepping out of his truck slipped and fell and sustained lateral fibula fracture with talus dislocation. He received hematoma block and reduction still with some persistent subluxation of the talus. Awaiting orthopedic consultation. Dr. Hughes has been contacted and is in the operating room. 20:40 ED course: Patient seen by Dr. Hughes, would like to [facility] procedurally sedate the patient and reattempt reduction as well as splinting with cast material rather than Ortho-Glass to he feels unstable ankle fractures have improved alignment with this technique. Patient was consented for sedation n.p.o. for many hours he states he is received procedural sedation in the past and never had any untoward outcomes. He was taken to the resuscitation bay full monitoring in place advanced airway equipment assembled including suction [id number] and intubation equipment. Initially he was sedated with 45 mg ketamine and propofol mixed together administered by me. He sedated fairly well remains somewhat talkative during the procedure hemodynamically stable. Reduction was performed with Dr. Hughes. Still with some subluxation and thought to be an un stable ankle. Patient was partially recovered and orthopedics decided to attempt reduction again after obtaining additional supplies from the operating room. He received 25 mg IV propofol x3 by me. He was minimally talkative during this but did allow for repeat reduction. He remained hemodynamically stable throughout no apnea or aspiration. At this time anticipate uneventful recovery. There was a single hypotensive blood pressure read however the patient was moving his arm during this and I believe this was artifact. Upon resting his arm and immediately repeat blood pressure was normal.. 20:51 ED course: Postreduction film overall improved alignment. [facility] This was reviewed with Dr. Hughes at the bedside. Still suboptimal alignment states the patient will still need surgery but can go home tonight.. 21:46 ED course: He has been ambulating with crutches to the [facility] bathroom. I did write for a walker as well has little bit of difficulty using crutches and is definitely nonweightbearing on the left ankle. At this time capillary refill is normal her toes sensation is normal. We reviewed symptoms of compartment syndrome encouraged him to follow-up immediately if they occur. Will provide contact information for orthopedic group will be happy to see him. Patient does live in [place] he is uncertain if he wants to see orthopedics at their follow-up with our group. I encouraged him to contact Ortho tomorrow for follow-up in the next few days.. 08/14 16:26 Order name: Cbc With Auto Differential; Complete Time: 17:00jam2 08/14 19:21 Interpretation: WBC 12.9; HGB 16.0; HCT 47.1; PLT 255. [facility] 08/14 16:26 Order name: COMMET; Complete Time: 17:15 jam2 08/14 19:21 Interpretation: NA 140; K 4.4; CL 109; CO2 26.0; GAP 5.0; 3 BUN 23; CREAT 1.21; Glom Filtration 61; GLU 92; CA 9.2; Corrected CA 9.2; T Bili 0.4; SGOT(AST) 21; SGPT(ALT) 40; ALK PHOS 94; TP 7.4; ALB 4.0. 08/14 16:26 Order name: PT; Complete Time: 17:00 [facility] 08/14 19:23 Interpretation: PT 10.7; INR 0.93. [facility] 08/14 16:26 Order name: PTT; Complete Time: 17:00 [facility] 08/14 19:23 Interpretation: PTT 26.0. [facility] 08/14 16:26 Order name: Type And Screen; Complete Time: 18:31 [facility] 08/14 19:23 Interpretation: BLD TYPE B Positive. [facility] 08/14 16:52 Order name: POC COVID19 NOW; Complete Time: 17:00 [facility] 08/14 19:23 Interpretation: SARS-CoV-2 RNA Negative. [facility] 08/14 16:26 Order name: Ankle Lt Min 3 Views - Xray [facility] 08/14 16:26 Order name: Chest Xray - portable [facility] 08/14 16:26 Order name: Cardiology EKG Interpretation - Choose Reason [facility] for Test 08/14 17:00 Order name: Ankle Lt Min 3 Views - Xray [facility] 08/14 20:10 Order name: XR Ankle Lt Min. 3 Views [facility] 08/14 16:26 Order name: Iv Saline Lock; Complete Time: 16:30 [facility] 08/14 16:26 Order name: NPO; Complete Time: 16:30 [facility] 08/14 16:26 Order name: POC - Collect COVID-19 swab; Complete Time: [facility] 16:41 08/14 16:26 Order name: Emergency Room EKG Order - Use EKG Work-Up [facility]2 /Quick Select; Complete Time: 16:30 08/14 16:27 Order name: Ice Pack; Complete Time: 16:31 [facility] 08/14 17:00 Order name: Splint Posterior Short; Complete Time: 18:14 [facility] 08/14 19:39 Order name: Monitor - Cardiac, Place on Patient [facility] 08/14 19:39 Order name: Other Non-Medication Order:: EtCO2 monitor [facility] 08/14 19:39 Order name: Recheck Temperature; Complete Time: 21:06 [facility] 08/14 21:01 Order name: Crutches; Complete Time: 21:06 [facility] Dispensed Medications: 16:30 Drug: fentaNYL (PF) 100 mcg [fentanyl (PF) 50 mcg/mL екатерина injection solution (2 mL)] Route: IVP; Site: left wrist; 18:15 Follow up: Response: Pain is decreased екатерина 16:36 Drug: Ondansetron (PF) 4 mg [ondansetron HCl (PF) 4 mg/2 mL екатерина injection solution] Route: IV; Rate: calculated rate; Site: left wrist; 18:15 Follow up: Response: Nausea is decreased екатерина 18:15 Follow up: IV Status: Completed infusion; IV Intake: 2ml екатерина 16:57 Drug: HYDROmorphone 1 mg [hydromorphone 1 mg/mL injection екатерина syringe (1 mL)] Route: IVP; Site: left wrist; 18:15 Follow up: Response: Pain is decreased екатерина 20:03 Drug: NS 0.9% 1000 ml [sodium chloride 0.9 % injection tb7 solution] Route: IV; Rate: 999 mL/hr; Site: left forearm; 20:55 Follow up: IV Status: Completed infusion tb7 20:03 Drug: Ketalar 45 mg [Ketalar 50 mg/mL injection solution tb7 (0.9 mL)] Route: IVP; Site: left forearm; 20:55 Follow up: Response: No adverse reaction; Pain is decreased tb7 20:03 Drug: Diprivan 45 mg [Diprivan 10 mg/mL intravenous tb7 emulsion (4.5 mL)] Route: IVP; Site: left forearm; 20:40 Follow up: Response: No adverse reaction; 25 mg at 2024, 25 tb7 mg at 2026, 25 mg at 2031 20:25 Drug: Diprivan 25 mg [Diprivan 10 mg/mL intravenous tb7 emulsion (2.5 mL)] Route: IVP; Site: left forearm; 20:54 Follow up: Response: No adverse reaction tb7 20:27 Drug: Diprivan 25 mg [Diprivan 10 mg/mL intravenous tb7 emulsion (2.5 mL)] Route: IVP; Site: left forearm; 20:55 Follow up: Response: No adverse reaction tb7 20:32 Drug: Diprivan 25 mg [Diprivan 10 mg/mL intravenous tb7 emulsion (2.5 mL)] Route: IVP; Site: left forearm; 20:55 Follow up: Response: No adverse reaction tb7 22:00 Drug: ToGo ([place]) - HYDROcodone-acetaminophen 4 tabs tb7 [hydrocodone 5 mg-acetaminophen 325 mg tablet (4 tabs)] Route: PO; 22:00 Follow up: to go medication tb7 Disposition Summary: 08/14/20 21:48 Discharge Ordered Location: Home/Self Care rc3 Condition: Good rc3 Diagnosis - Left fibula fracture with talus dislocation rc3 Followup: rc3 - With: Milton Best MD - When: 2 - 3 days - Reason: Recheck today's complaints Discharge Instructions: - Discharge Summary Sheet rc3 - Ankle Fracture rc3 - Crutch Use, Adult rc3 - How to Use a Walker rc3 - Acute Compartment Syndrome rc3 - Sedation [facility] Discharge Instructions rc3 Forms: - Medication Reconciliation rc3 Signatures: Dispatcher [employer] EDCristo Boland MD MD jam2 Clarence Jean DO DO rc3 Kimberley Gonzalez, SUPERINTENDENT MENAGERIE SUPERINTENDENT MENAGERIE kb2 Emely Pacheco, Nikole Saldana RN, RN RN tb7 Corrections: (The following items were deleted from the chart) 20:21 20:10 XR Ankle Lt Min 3 Views+XRP.RAD.CAN ordered. EDMS EDMS 21:00 20:35 XR Ankle Lt Min 3 Views+XRP.RAD.CAN ordered. EDMS EDMS Name Value Range Interpretation Code Description Data Kavya rce(s) Supporting Document(s) ID Date Data Source [id number] 08/14/2020 04:24:00 PM [facility] Name: BETY JARVIS [facility] Rec #: [id number] 0 : 1960 Age/Sex: 60M Date of Service: 08/14/20 DISPOSITION SUMMARY Discharge Summary [facility] Name:Bety Jarvis Emergency Department Age:60 yrs Sex:Male :1960 Arrival:08/14/2020 16:24 Departure Date08/14/2020 Departure Time22:03 Private MD:Shanna Out of Outcome: Discharge Location: Home/Self Care Condition: Good Chief Complaint: Ankle Injury Diagnosis: - Left fibula fracture with talus dislocation Prescriptions: Follow up: Milton Best MD Custom Notes: <span>Try to elevate your leg above the level of the heart when at rest.</span><span> You can try ibuprofen as your first-line pain medication.</span><span> Do not drive or drink alcohol taking [place] for pain.</span><span> Use crutches or walker until cleared by orthopedics.</span><span> Please call orthopedics in the morning for follow-up in the next few days.</span>
<span>Return immediately for uncontrolled pain, numbness in your foot</span><span>, discoloration to her toes, any additional concerns</span>.
<span>You can take 1 [place] every 6 hours as needed for more significant pain. Due to the medications given to you tonight in emergency department</span><span>, do not start taking [place] until at least 3 AM.</span> Attending Physician: Clarence Jean DO Private MD: Shanna Out of [facility] Level Provider: Followup Physician: Milton Best MD Orders: Cbc With Auto Differential, COMMET, PT, PTT, Type And Screen, POC COVID19 NOW, fentaNYL (PF), Ankle Lt Min 3 Views - Xray, Chest Xray - portable, Cardiology EKG Interpretation - Choose Reason for Test, Ankle Lt Min 3 Views - Xray, Ankle Lt Min 3 Views - Xray, XR Ankle Lt Min. 3 Views, XR Ankle Lt Min 3 Views, Iv Saline Lock, NPO, POC - Collect COVID-19 swab, Ondansetron (PF), Emergency Room EKG Order - Use EKG Work-Up /Quick Select, Ice Pack, HYDROmorphone, Splint Posterior Short, Monitor - Cardiac, Place on Patient, NS 0.9%, Ketalar, Diprivan, Diprivan, Diprivan, Diprivan, HYDROcodone-acetaminophen, Other Non- Medication Order:: EtCO2 monitor, Recheck Temperature, Crutches Discharge Instruction: Discharge Summary Sheet, Ankle Fracture, Crutch Use, Adult, How to Use a Walker, Acute Compartment Syndrome, Sedation [facility] Discharge Instructions, Medication Reconciliation Name Value Range Interpretation Code Description Data Kavya rce(s) Supporting Document(s) ID Date Data Source [id number] 08/14/2020 04:24:00 PM [facility] Name: BETY JARVIS [facility] Rec #: [id number] 0 : 1960 Age/Sex: 60M Date of Service: 08/14/20 NURSE CHART Nurse's Notes [facility] Name: Bety Jarvis Age: 60 yrs Sex: Male : 1960 Arrival Date: 08/14/2020 Time: 16:24 Bed 1 Private MD: Shanna, Out of Diagnosis: Left fibula fracture with talus dislocation Presentation: 08/14 16:36 Transition of care: pat ient was not received from another [facility] setting of care. Presenting complaint: Patient states - Slipped and fell and injured his left ankle. Appears dislocated. Have you travelled in the last 30 days? No. Have you had contact with an individual with a confirmed diagnosis of Ebola or COVID-19? No. 16:36 Method Of Arrival: [facility] 16:36 Acuity: Urgent - 3 [facility] Triage Assessment: 16:37 SEPSIS SCREEN: A Confirmed or Suspected Infection is екатерина Unknown, their temperature is not <96.8 or >100.9, their heart rate is not >90, their RR is not >20, it is unknown if their WBC is <4 or >12, the patient does not have new or unexplained altered mental status. SIRS or Sepsis criteria is not present. Suicide Screening: Have you had thoughts of harming yourself or others? No. The patient appears to be uncomfortable, The patient is cooperative. Patient states the pain is currently a 7 / 10 The patient complains of pain in left medial malleolus, left Achilles and medial aspect of left heel. Patient denies any radiating pain. The patient states the pain began suddenly, The quality of the pain is described as aching, sharp, The pain is described as continuous, The pain is reportedly aggravated by repositioning. Historical: - Allergies: Lamisil AT; Rash; - PMHx: Chronic obstructive lung disease; - PSHx: Hernia repair; Circumcision; - Med Reconciliation:: Yellow Alert: The patient's home medication list is partly complete. However, additional information is required to complete list. Medications reviewed, completed by nurse verbally from patient/family. - Immunization history: Patient is not sure when last tetanus shot was. - Advance directive: There is no existing advanced directive. Information offered. - Family History:: mother : unknown medical history. Father : unknown medical history. - Social History: Smoking status (Tobacco): Patient states they are a former tobacco smoker, quit smoking Quit 1 week ago, Smoked 1 PPD ago. Preferred Language: [place]. Screenin:45 AUDIT 1. How often do you have a drink containing alcohol? екатерина 4 or more times a week (4 points) 2. How many standard drinks containing alcohol do you have on a typical day when drinking? 1 or 2 (0 points) 3. How often do you have five or more drinks on one occasion? Daily or almost daily (4 points). Drug Abuse Screening Test: 1. Have you used drugs other than those required for medical reasons? No (0 points), screen is complete, no risk. Abuse screen: Denies threats or abuse. Nutritional screening: No deficits noted. The patient has more than one active medical diagnosis or is on a medication that may impair gait. The patient has IV access (20 points). The patient is hooked up to a monitor (20 points). The patient's gait is impaired (20 points), cannot walk without assitance. The patient is at HIGH RISK for falls (Vale Scale = >45 pts). Fall prevention measures have been instituted. Side rails are up, patient is being reassessed frequently. Assessment: 16:38 Musculoskeletal: Circulation, motion, and sensation are all екатерина intact. Capillary Refill is < 3 seconds, brisk, in bilateral toes Bony deformity noted of medial aspect of left heel and left Achilles and left medial malleolus Pulses present in right posterior tibial artery, right dorsalis pedis artery, left posterior tibial artery and left dorsalis pedis artery, (+2). Vital Signs: 16:36 BP 131 / 83; Pulse 68; Resp 17; Pulse Ox 93% 0 lpm ; cmf 18:36 BP 128 / 81; Pulse 72; Resp 14; Pulse Ox 95% ; tb7 19:23 BP 124 / 69; Pulse 69; Resp 14; Pulse Ox 97% on R/A; tb7 19:53 BP 139 / 70; Pulse 71; Resp 17; Temp 97.8(TE); Pulse Ox 97% tb7 on 2 lpm NC; Pain 7/10; 20:04 BP 108 / 77; Pulse 69; Resp 17; Pulse Ox 97% on 2 lpm NC; tb7 20:04 BP 107 / 73; Pulse 71; Resp 16; Pulse Ox 96% on 4 lpm NC; tb7 20:09 BP 143 / 71; Pulse 75; Resp 20; Pulse Ox 96% on 4 lpm NC; tb7 20:11 BP 132 / 78; Pulse 79; Resp 23; Pulse Ox 95% on 4 lpm NC; tb7 20:14 BP 132 / 78; Pulse 79; Resp 23; Pulse Ox 95% on 4 lpm NC; tb7 20:19 BP 134 / 81; Pulse 69; Resp 15; Pulse Ox 97% on 4 lpm NC; tb7 20:23 BP 128 / 80; Pulse 72; Resp 18; Pulse Ox 97% on 4 lpm NC; tb7 20:29 BP 129 / 76; Pulse 74; Resp 14; Pulse Ox 95% on R/A; tb7 20:34 BP 111 / 68; Pulse 76; Resp 15; Pulse Ox 95% on 4 lpm NC; tb7 20:37 Weight 92.99 kg (R); Height 5 ft. 1 in. (154.94 cm) (R); tb7 20:41 BP 132 / 85; Pulse 77; Resp 18; Pulse Ox 97% on 4 lpm NC; tb7 20:46 BP 130 / 74; Pulse 74; Resp 17; Pulse Ox 96% on 2 lpm NC; tb7 20:51 BP 134 / 91; Pulse 74; Resp 18; Pulse Ox 96% on R/A; tb7 20:56 BP 143 / 78; Pulse 74; Resp 17; Pulse Ox 95% on R/A; Pain tb7 0/10; 21:06 BP 134 / 79; Pulse 74; Resp 20; Pulse Ox 94% on R/A; Pain tb7 0/10; 21:21 BP 134 / 80; Pulse 68; Resp 18; Temp 97.7(TE); Pulse Ox 95% tb7 on R/A; Pain 0/10; 20:37 Body Mass Index 38.73 (92.99 kg, 154.94 cm) tb7 20:04 TCO2 44 tb7 20:09 ETCO2 15 tb7 20:19 ETCO2 24 tb7 20:23 ETCO2 16 tb7 20:29 ETCO2 12 tb7 20:34 ETCO2 45 tb7 20:46 ETCO2 27 tb7 20:51 ETCO2 40 tb7 20:56 ETCO2 40 tb7 ED Course: 16:25 Nikole Torrse, LOREN is Primary Nurse. hmp 16:25 Patient arrived in ED. p 16:25 Cristo Kennedy MD is Attending Physician. [facility] 16:30 Labs drawn by ED staff. Inserted peripheral IV: 18 gauge in kb2 left wrist. 16:30 Ankle Lt Min 3 Views - Xray Sent. екатерина 16:30 Chest Xray - portable Sent. екатерина 16:36 An EKG was obtained and reviewed by Gracia Peterson MD. cmf 16:37 Triage completed. екатерина 16:38 Arm band placed on right wrist. Patient placed in exam room екатерина Patient has correct armband on for positive identification. 16:41 The patient was tested for COVID-19 and. kb2 16:53 [facility], Out of is Private Physician. екатерина 18:14 Ankle Lt Min 3 Views - Xray Sent. екатерина 19:19 Attending Physician role handed off by Cristo Kennedy, Jodyc3 19:19 Clarence Jean DO is Attending Physician. rc3 21:22 Radiology: a portable X-ray was completed at 20:25. tb7 21:22 Assist provider with reduction of left ankle using tb7 traction, manipulation, Set up for procedure. Performed by Milton Best MD Immobilized with plaster splint Patient tolerated well. 21:48 Milton Best MD is Referral Physician. rc3 21:53 Primary Nurse role handed off by Nikole Torres RN skb 21:53 Jared Almeida RN is Primary Nurse. jose carlos Gardiner Sedation: 19:53 Pre-procedure: Name of procedure: closed reduction of left tb7 ankle Consent: Informed consent obtained, The patient has been NPO for at least 8 hours, Equipment checklist: Crash cart is immediately available, continuous EtCO2 monitoring has been applied, Airways are available if needed, Suction is set up and working properly, a BVM is easily accessible, a thermometer is available, the patient is on continuous ECG monitoring, Reversal Agents are at the bedside. Defibrillator is in close proximity to the patient, BP Monitoring is applied, IV solutions are easily accessible, Oxygen delivery system is easily accessible, continuous SPO2 monitoring is applied, Baseline Assessment: a baseline set of vital signs have been obtained and documented. The cardiac rhythm is Normal Sinus Rhythm Patient does not have a history of adverse reaction to sedation. During procedure: A verbal confirmation to correct patient, procedure and site was performed. Procedure began at 20:03 Vitals signs have been checked and documented before and after each dose of medication or at a minimum, every 5 minutes during the procedure. The patient is continuously checked for changes in condition and/or untoward response and is unarousable to repeated or painful stimulation. No intervention(s) were required. EtCO2 23mmHg. 20:42 Post-procedure: Procedure ended at 20:35 the total tb7 procedure time was 31-45 minutes Vitals/PAR repeated every 15 minutes and as needed until PAR equals 8 or baseline score achieved. the cardiac rhythm is Nomal SInus Rhythm After the procedure their EtCO2 was 45mmHg. normal rate 12-20 breaths per minute (2 points) moves limbs but unable to sustain a 5 second head lift (1 point) Stable BP and pulse with no changes in previous two sets of readings (2 points) Awake or awakes easily when spoken to (2 points) The patients post-procedure PAR score is 7. 20:51 Post- procedure: The patient's behavior/vitals have returned tb7 to baseline and is able to tolerate PO fluids. normal rate 12-20 breaths per minute (2 points) >92% on room air (2 points) moves limbs but unable to sustain a 5 second head lift (1 point) Stable BP and pulse with no changes in previous two sets of readings (2 points) Awake or awakes easily when spoken to (2 points) The patients post-procedure PAR score is 9. 21:22 The patients post-procedure PAR score is 9. tb7 21:24 Pre-procedure: Baseline Assessment: Prior to the procedure tb7 their EtCO2 was 35mmHg. Administered Medications: 16:30 Drug: fentaNYL (PF) 100 mcg [fentanyl (PF) 50 mcg/mL екатерина injection solution (2 mL)] Route: IVP; Site: left wrist; 18:15 Follow up: Response: Pain is decreased [facility] 16:36 Drug: Ondansetron (PF) 4 mg [ondansetron HCl (PF) 4 mg/2 mL екатерина injection solution] Route: IV; Rate: calculated rate; Site: left wrist; 18:15 Follow up: Response: Nausea is decreased екатерина 18:15 Follow up: IV Status: Completed infusion; IV Intake: 2ml екатерина 16:57 Drug: HYDROmorphone 1 mg [hydromorphone 1 mg/mL injection екатерина syringe (1 mL)] Route: IVP; Site: left wrist; 18:15 Follow up: Response: Pain is decreased [facility] 20:03 Drug: NS 0.9% 1000 ml [sodium chloride 0.9 % injection tb7 solution] Route: IV; Rate: 999 mL/hr; Site: left forearm; 20:55 Follow up: IV Status: Completed infusion tb7 20:03 Drug: Ketalar 45 mg [Ketalar 50 mg/mL injection solution tb7 (0.9 mL)] Route: IVP; Site: left forearm; 20:55 Follow up: Response: No adverse reaction; Pain is decreased tb7 20:03 Drug: Diprivan 45 mg [Diprivan 10 mg/mL intravenous tb7 emulsion (4.5 mL)] Route: IVP; Site: left forearm; 20:40 Follow up: Response: No adverse reaction; 25 mg at 2024, 25 tb7 mg at 2026, 25 mg at 2031 20:25 Drug: Diprivan 25 mg [Diprivan 10 mg/mL intravenous tb7 emulsion (2.5 mL)] Route: IVP; Site: left forearm; 20:54 Follow up: Response: No adverse reaction tb7 20:27 Drug: Diprivan 25 mg [Diprivan 10 mg/mL intravenous tb7 emulsion (2.5 mL)] Route: IVP; Site: left forearm; 20:55 Follow up: Response: No adverse reaction tb7 20:32 Drug: Diprivan 25 mg [Diprivan 10 mg/mL intravenous tb7 emulsion (2.5 mL)] Route: IVP; Site: left forearm; 20:55 Follow up: Response: No adverse reaction tb7 22:00 Drug: ToGo ([place]) - HYDROcodone-acetaminophen 4 tabs tb7 [hydrocodone 5 mg-acetaminophen 325 mg tablet (4 tabs)] Route: PO; 22:00 Follow up: to go medication tb7 Intake: 18:15 IV: 2ml; Total: 2ml. екатерина Outcome: 21:24 Vitals are Complete in accordance with Emergency De partment tb7 Policy. 21:48 Discharge ordered by MD. anderson 22:01 Patient verbalized understanding of disposition tb7 instructions. Patient requires assistance, transferring in/out of bed and/or chair with little or no assistance, Patient awake and alert. Oriented to person, place and time. 22:01 Patient discharged to home via wheelchair, with family, with crutches. 22:01 Condition: stable 22:01 Discharge instructions given to patient, significant other, Patient was instructed on discharge instructions, follow up and referral plans, medication usage, The patient demonstrated understanding of instructions, crutch walking, medications, No prescriptions given. 22:03 Patient left the ED. tb7 08/15 09:04 24 hour call back attempted, no answer sj Signatures: Shi Lin, Reg Reg hmp Monse Molina, RN RN sj Cristo Kennedy MD MD jam2 Clarence Jean DO DO rc3 Kimberley Gonzalez, SUPERINTENDENT MENAGERIE SUPERINTENDENT MENAGERIE kb2 Corine Hugo, RN RN skb Emely Pacheco, RN RN Nikole Begum RN RN tb7 Minesh Hagan NA NA cmf Corrections: ( The following items were deleted from the chart) 08/14 20:30 20:09 BP 132 / 78; Pulse 79bpm; Resp 23bpm; Pulse Ox 95% 4 tb7 lpm Nasal Cannula; tb7 Name Value Range Interpretation Code Description Data Kavya rce(s) Supporting Document(s) ID Date Data Source [id number] 08/15/2020 05:24:00 AM [facility] Name: BETY JARVIS : 1960 Ag e/Sex: 60M Ordering Provider: Clarence Jean DO Med Rec #: [id number] Reg Status: [facility] Room #: Date of Service: 08/14/20 Report Number: [id number] cc:PCP Unknown Send Report To: [id number] XRP/XR Ankle Lt Min. 3 Views Reason for exam: POST REDUCTION Prior examination: Earlier this same date. FINDINGS: Cast/splint obscures bony detail. Again seen is a spiral fracture ofthe distal metaphysis of the fibula. There is significantly improved alignment of the tibiotalar joint. IMPRESSION: As above. Fluoroscopy time in seconds: 0 Number of Exposures: 3 Time Portable Image Performed: Contrast Agent in ml: Method of Administration: REPORT SIGNATURE ON FILE Reported By: Milton Elizabeth MD <Electronically signed by Milton Elizabeth MD> 08/15/20 1223 Dictation Date/Time: 08/14/202053 Transcribed Date/Time: 08/15/20 05 Shipbuilding Draftsperson: HE Name Value Range Interpretation Code Description Data Kavya rce(s) Supporting Document(s) ID Date Data Source [id number] 08/15/2020 11:43:00 AM EST [facility] Hospital Name: BETY JARVIS : 1960 Ag e/Sex: 60M Ordering Provider: Cristo Kennedy MD Med Rec #: [id number] Reg Status: [facility] Room #: Date of Service: 08/14/20 Report Number: [id number] cc:Cristo Kennedy MD; PCP Unknown; Clarence Jean DO Send Report To: [id number] XRP/XR Ankle Lt Min. 3 Views Reason for exam: INJURY FINDINGS: Cast has been placed. There is still fracture subluxation identified. IMPRESSION: CASTED FRACTURE SUBLUXATION WITH PERSISTENT SUBLUXATION OF THE TALUS. Fluoroscopy time in seconds: 0 Number of Exposures: Time Portable Image Performed: Contrast Agent in ml: Method of Administration: REPORT SIGNATURE ON FILE Reported By: Milton Elizabeth MD <Electronically signed by Milton Elizabeth MD> 08/15/20 1223 Dictation Date/Time: 08/14/201753 Transcribed Date/Time: 08/15/20 114 Shipbuilding Draftsperson: ALBA Name Value Range Interpretation Code Description Data Kavya rce(s) Supporting Document(s) ID Date Data Source [id number] 08/14/2020 04:55:00 PM [facility] Performed by: BACKRControl Line Present ? YCOVID Screen Result: NEGATIVENegative results should be treated as presumptive and, if inconsistent with clinical signs and symptoms or necessary for patient management, should be tested with different authorized or cleared molecular tests. Negative results do not preclude SARS-CoV-2 infection and should not be used as the sole basis for patient management decisions. Negative results should be considered in the context of a patients recent exposures, history and the presence of clinical signs and symptoms consistent with COVID-19. This test has not been FDA cleared or approved; this test has been authorized by FDA under an Emergency Use Authorization for use by laboratories certified under the Clinical Laboratory Improvement Amendments of 1988 (CLIA), 42 U.S.C. 263a, to perform moderate complexity/high complexity tests and at the Point of Care (POC), i.e., in patient care settings operating under a CLIA Certificate of Waiver, Certificate of Compliance, or Certificate of Accreditation. Factsheets for healthcare providers: https://www.fda.gov/media/575452/download Factsheets for patients: https://www.fda.gov/media/375590/download The ID NOW Instrument is a rapid molecular in vitro diagnostic test utilizing an isothermal nucleic acid amplification technology intended for the qualitative detection of nucleic acid from the SARS-CoV-2 viral RNA. THIS IS A STATE REPORTABLE COMMUNICABLE DISEASE. Manual entry verified by Kim Andrews 08/14/20 0449 Name Value Range Interpretation Code Description Data Kavya rce(s) Supporting Document(s) ID Date Data Source [id number] 08/14/2020 06:30:00 PM [facility] Name Value Range Interpretation Code Description Data Kavya rce(s) Supporting Document(s) BLOOD TYPE PATIENT B Positive Normal (applies to non-numer ic results) [facility] ANTIBODY SCREEN NEGATIVE Normal (applies to non-numeric results) [facility] ID Date Data Source [id number] 08/14/2020 05:02:00 PM [facility] Name Value Range Interpretation Code Description Data Kavya rce(s) Supporting Document(s) Sodium 140 mmol/L 137-145 Normal (applies to non-numeric resul ts) [facility] Potassium 3.5-5.1 Normal (applies to non-numeric resul ts) [facility] Chloride 109 mmol/L 98-112 Normal (applies to non-numeric resul ts) [facility] Carbon Dioxide CO2 22.0-33.0 Normal (applies to non-numer ic results) [facility] Anion Gap 4.0-11.0 Normal (applies to non-numeric resul ts) [facility] BUN 23 mg/dL 9-20 Above high normal [facility] Creatinine 0.80-1.50 Normal (applies to non-numeric resul ts) [facility] GFR 61 mL/min >60 Normal (applies to non-numeric resul ts) [facility] Result based on MDRD formula. Glucose Level 92 mg/dL 74-99 Normal (applies to non-numeric re sults) [facility] The reference range is only applicable w hen fasting. Calcium-Uncorrected 8.4-10.2 Normal (applies to non-nume yoshi results) [facility] Corrected Calcium 8.4-10.2 Normal (applies to non-numeri c results) [facility] Bilirubin,Total 0.2-1.3 Normal (applies to non-numeric results) [facility] SGOT(AST) 21 U/L 17-59 Normal (applies to non-numeric resul ts) [facility] SGPT(ALT) 40 U/L 21-72 Normal (applies to non-numeric resul ts) [facility] Alkaline Phosphatase 94 U/L 38-126 Normal (applies to non-num madai results) [facility] can increase Alkaline Phosp le vels up to 2 times the normal adult value. Normal values for children and adolescents are 2 to 3 times the normal adult value. Total Protein 6.3-8.2 Normal (applies to non-numeric re sults) [facility] Albumin 3.5-5.0 Normal (applies to non-numeric resul ts) [facility] ID Date Data Source [id number] 08/14/2020 04:52:00 PM EST [facility] Name Value Range Interpretation Code Description Data Kavya rce(s) Supporting Document(s) White Blood Count 4.8-10.8 Above high normal [facility] Red Blood Count 4.35-6.08 Normal (applies to non-numeric results) [facility] Hemoglobin 13.0-17.5 Normal (applies to non-numeric resul ts) [facility] Hematocrit 37.7-51.0 Normal (applies to non-numeric resul ts) [facility] Mean Corpuscular Volume 80-94 Normal (applies to non- numeric results) [facility] Mean Corpuscular Hemoglobin 27.0-33.0 Normal (appli es to non-numeric results) [facility] Mean Corpuscular HGB Conc 32.0-36.0 Normal (applies to no n-numeric results) [facility] Red Cell Distribution Width 11.5-14.5 Normal (appli es to non-numeric results) [facility] Platelet Count 255 X10 3/uL 130-450 Normal (applies to non-numeric results) [facility] Mean Platelet Volume 9.6-13.1 Normal (applies to non-num madai results) [facility] Imm Grans% (AUTO) 2 % 0-2 Normal (applies to non-numeri c results) [facility] Neutrophils % (AUTO) 65 % 40-75 Normal (applies to non-num madai results) [facility] Lymphocytes % (AUTO) 20 % 21-46 Below low normal [facility] Monocytes % (AUTO) 8 % 5-12 Normal (applies to non-numer ic results) [facility] Eosinophils % (AUTO) 4 % 1-5 Normal (applies to non-num madai results) [facility] Basophils % (AUTO) 1 % 0-1 Normal (applies to non-numer ic results) [facility] Imm Grans# (AUTO) 0.0-0.5 Normal (applies to non-numeri c results) [facility] Neutrophils # (AUTO) 1.5-8.1 Above high normal [facility] Lymphocytes # (AUTO) 1.0-3.1 Normal (applies to non-num madai results) [facility] Monocytes # (AUTO) 0.2-1.3 Normal (applies to non-numer ic results) [facility] Eosinophils# (AUTO) 0.0-0.5 Normal (applies to non-nume yoshi results) [facility] Basophils # (AUTO) 0.0-0.1 Normal (applies to non-numer ic results) [facility] ID Date Data Source [id number] 08/14/2020 04:51:00 PM [facility] Name Value Range Interpretation Code Description Data Kavya rce(s) Supporting Document(s) PT 9.4-12.5 Normal (applies to non-numeric results) [facility] INR Normal (applies to non-numeric results) [facility] The use of the INR is restricted to wes ents on stable oral anticoagulant. Therapeutic Range: 2.0-3.0 High Risk Values: 2.5-3.5 ID Date Data Source [id number] 08/14/2020 04:51:00 PM [facility] Name Value Range Interpretation Code Description Data Kavya rce(s) Supporting Document(s) PTT 25.1-36.5 Normal (applies to non-numeric resul ts) [facility] ID Date Data Source [id number] 08/15/2020 10:44:00 AM [facility] Name: BETY JARVIS : 1960 Ag e/Sex: 60M Ordering Provider: Cristo Kennedy MD Med Rec #: [id number] Reg Status: [facility] Room #: Date of Service: 08/14/20 Report Number: [id number] cc:PCP Unknown Send Report To: [id number] XRP/XR Ankle Lt Min. 3 Views Reason for exam: _INJURY FINDINGS: There is a fracture subluxation at the ankle with lateral subluxationof the talus. The fracture involves the lateral malleolus with no definite medial malleolar fracture. Fluoroscopy time in seconds: 0 Number of Exposures: Time Portable Image Performed: Contrast Agent in ml: Method of Administration: REPORT SIGNATURE ON FILE Reported By: Omar Lowery MD <Electronically signed by Sarah Lowery MD> 08/15/20 1242 Dictation Date/Time: 08/14/20 170 Transcribed Date/Time: 08/15/20 1044 Shipbuilding Draftsperson: HE Name Value Range Interpretation Code Description Data Kavya rce(s) Supporting Document(s) ID Date Data Source [id number] 08/15/2020 10:30:00 AM [facility] Name: BETY JARVIS : 1960 Ag e/Sex: 60M Ordering Provider: Cristo Kennedy MD Med Rec #: [id number] Reg Status: [facility] Room #: Date of Service: 08/14/20 Report Number: [id number] cc:PCP Unknown Send Report To: [id number] XRP/XR Chest Xray Portable Reason for exam: _INJURY FINDINGS: The cardiac and mediastinal silhouettes appear normal and the lungs are clear. The bones and soft tissues are normal. The upper abdomen is unremarkable. IMPRESSION: No acute disease identifiable. Fluoroscopy time in seconds: 0 Number of Exposures: Time Portable Image Performed: 1630 Contrast Agent in ml: Method of Administration: REPORT SIGNATURE ON FILE Reported By: Omar Lowery MD <Electronically signed by Sarah Lowery MD> 08/15/20 1242 Dictation Date/Time: 08/14/20 170 Transcribed Date/Time: 08/15/20 1030 Shipbuilding Draftsperson: HE Name Value Range Interpretation Code Description Data Kavya rce(s) Supporting Document(s) ID Date Data Source [id number] 08/15/2020 09:09:00 AM EST [facility] Hospital Name: BETY JARVIS : 1960 Ag e/Sex: 60M Ordering Provider: Cristo Kennedy MD Med Rec #: [id number] Reg Status:[facility] Room #: Date of Service: 08/14/20 Report Number: [id number] cc: Cristo Kennedy MD; PCP Unknown Send Report To: Reason for exam: Baseline SINUS RHYTHM NORMAL ECG Physician Laborer/Key Man: Dr. Praneeth Garcia M.D. ECG HEART RATE: 64 /min ECG RR INTERVAL: 926 ms ECG P DURATION: 93 ms ECG QRS DURATION: 86 ms ECG MT INTERVAL: 134 ms ECG QT INTERVAL: 371 ms ECG QTC INTERVAL: 378 ms Q-T dispersion: ms ECG P AXIS: 38 deg ECG QRS AXIS: 48 deg ECG T AXIS: 47 deg REPORT SIGNATURE ON FILE 08/15/20908 Reported By: Praneeth Garcia MD <<Signature on File>> Exam Date/Time: 08/14/20 1627 Order #: [id number] Dictation Date/Time: 08/15/20908 Transcribed Date/Time: 08/15/20908 Shipbuilding Draftsperson: ANTHONY Name Value Range Interpretation Code Description Data Kavya rce(s) Supporting Document(s) ID Date Data Source [id number] 05/26/2020 12:00:00 AM EST [facility] Sandeep Jeffers MD Patient Name: BETY JARVIS19[address] [facility] Date of : 1960[place] Date of Exam: 05/26/2020RIKI Medrano [id number]#: Fax: [phone] EXAM: CT THORAX WITHOUT CONTRASTCLINICAL INFORMATION: Followup lung nodules.All priors were reviewed, the latest of which is dated 11/26/2019.64 slice low dose helical CT scanning was obtained throughout the thoraxwithout intravenous contrast along with sagittal and coronalreconstructions.The mediastinum and pulmonary [place] are stable. No mass or adenopathy hasdeveloped. Incidental calcified lymph nodes are again seen in the lefthilum. The imaged upper abdomen and imaged osseous structures are stable.There are no pleural or pericardial effusions.Evaluation of the lung stacy shows two stable nodules in the right upperlobe medially abutting the mediastinal pleural reflection. The larger ofthe two measuring approximately 1 cm and the smaller of the twoapproximately 7 mm. No new abnormal nodules, masses, or opacities havedeveloped. Note is again made of incidental calcified granulomas in theleft upper lobe. There is minimal biapical pleuroparenchymal scarring,status quo.IMPRESSION:Stable CT examination of the chest as described above. Yearly CT screeningis recommended as per the revised Fleischner Society criteria.Accredited by the [employer] in [place].PRINCESS River/Paresh you for referring BETY JARVIS to our office. Electronically Signed - MANUEL ZURITA DO 05/26/20 16:59 Name Value Range Interpretation Code Description Data Kavya rce(s) Supporting Document(s) ID Date Data Source [id number] 05/12/2020 08:28:00 AM EST [facility] ([facility], ) Name Value Range Interpretation Code Description Data Kavya rce(s) Supporting Document(s) Surgical pathology study Laboratory test result [facility] ([facility]) FINAL DIAGNOSIS Colon, descending polyps, snare polypectomy: Hyperplastic polyps. 05/13/2020 - 1143 CLINICAL DIAGNOSIS History colon polyps 05/12/2020 - 151 GROSS DIAGNOSIS Received in formalin labeled "polyps in descending colon" are multiple fragments of ramirez tissue and fecal material measuring 0.8 x 0.6 x 0.2 cm in aggregate. All in one. -SV 05/12/2020 - 151 Signed NAOMI CARCAMO MD 05/13/2020 1435 ID Date Data Source [id number] 05/07/2020 02:00:00 PM EDT [facility] Name Value Range Interpretation Code Description Data Kavya rce(s) Supporting Document(s) SARS coronavirus 2 RNA [facility] This lab was ordered by [facility] and reported by [facility]. ID Date Data Source [id number] 12/10/2019 11:10:00 AM EDT [facility] ([facility]) Name Value Range Interpretation Code Description Data Kavya rce(s) Supporting Document(s) PDFReport Laboratory test result [facility] ([facility]) FVC-Pred 3.96 L [facility] ([facility]) FVC-%Pred-Pre 68 L [facility] ([facility]) FVC-Pre 2.70 L [facility] ([facility]) FVC-LLN 3.15 L [facility] ([facility]) Fev1-Pred 3.00 L [facility] ([facility]) Fev1-%Pred-Pre 45 L [facility] ([facility]) Fev1-Pre 1.36 L [facility] ([facility]) Fev1-LLN 2.31 L [facility] ([facility]) Fev6-Pred 3.76 L [facility] ([facility]) Fev6-Pre 2.70 L [facility] ([facility]) Fev6-%Pred-Pre 71 L [facility] ([facility]) Fev6-LLN 2.98 L [facility] ([facility]) Fyo5jhh-Lnsn 76 % [facility] ([facility], ) Zev3fxi-Ykm 50 % [facility] ([facility]) Oab5skc-Oubw 95 % [facility] ([facility]) Agf2krj-%Pred-Pre 66 % [facility] ([facility]) Ntw9zrz-PZE 66 % [facility] ([facility]) Hpb5dgc-Ovg 100 % [facility] ([facility]) Dcr6hoc-%Pred-Pre 105 % [facility] ([facility]) FEFMax-Pred 8.14 L/E/sec [facility] ([facility]) FEFMax-Pre 2.53 L/E/sec [facility] ([facility]) FEFMax-LLN 6.13 L/E/sec [facility] ([facility]) FEFMax-%Pred-Pre 31 L/E/sec [facility] ([facility]) Yxg6445-%Pred-Pre 26 L/E/sec [facility] ([facility]) Jnm8750-Wps 0.67 L/E/sec [facility] ([facility]) Uvg4948-Davd 2.52 L/E/sec [facility] ([facility]) ExpTime-Pre 6.14 sec [facility] ([facility]) Ltp9dqk2-Nzeo 79 % [facility] ([facility]) Lyz3792-HAE 1.14 L/E/sec [facility] ([facility]) Jia8qbi5-Jdo 50 % [facility] ([facility]) Rsf9qxt8-QIE 70 % [facility] ([facility]) Iph0hjv6-%Pred-Pre 63 % [facility] ([facility]) ID Date Data Source [id number] 11/26/2019 12:00:00 AM EDT [facility] oly Imaging Sandeep eJffers MD Patient Name: BETY JARVIS19320 [facility] Date of : 1960[place] Date of Exam: 11/26/2019RIKI Medrano [id number]#: Fax: [phone] EXAM: CT THORAX WITHOUT CONTRASTCLINICAL INFORMATION: Followup 1.1 cm sized pleural based right upperlobe nodule and 7 mm sized pleural based right upper lobe nodule.All priors were reviewed, the latest 04/09/2019.64 slice low dose helical CT scanning was obtained throughout the thoraxwithout intravenous contrast along with sagittal and coronalreconstructions.The mediastinum and pulmonary [place] are unchanged. No mass or adenopathyhas developed. There are no pleural or pericardial effusions. There is nochange in the imaged upper abdomen or imaged osseous structures.Evaluation of the lung stacy shows an unchanged nodule in the posteriorsegment of the right upper lobe medially measuring 1.1 cm and a smaller butalso unchanged right upper lobe nodule just superior and anterior to thatmeasuring 7 mm. Incidental note is again made of a calcified granuloma inthe apical posterior segment of the left upper lobe. No new abnormalnodules, masses, or opacities have developed.IMPRESSION:Stable CT examination of the chest as described above. According to therevised Fleischner Society criteria, yearly CT screening is recommendedprovided the patient's risk factors remain high.Accredited by the [employer] in [place].PRINCESS River/Paresh you for referring BETY JARVIS to our office. Electronically Signed - MANUEL ZURITA DO 11/26/19 16:55 Name Value Range Interpretation Code Description Data Kavya rce(s) Supporting Document(s) Procedure Social History Code Duration Value Status Description Data Source(s ) Smoking 10/01/2019 12:00:00 AM EDT Former Smoker completed Former Smoker eCW1 ([facility]) Smoking 10/01/2019 12:00:00 AM EDT Former Smoker completed Former Smoker eCW1 ([facility]) Vital Signs ID Date Data Source UNK Name Value Range Interpretation Code Description Data Source(s) Body mass index (BMI) [Ratio] 38.4 kg/m2 38.4 k g/m2 MEDENT ([facility]) Body weight 210.00 [lb_av] 210.00 [lb_av] MEDEN T ([facility]) Body height 62 [in_i] 62 [in_i] MEDENT ([facility]) 5'2" [place] body weight 136 [lb_av] 136 [lb_av] MEDEN T ([facility]) Body mass index (BMI) [Ratio] 34.8 kg/m2 34.8 k g/m2 [facility] ([facility]) Body weight 209.00 [lb_av] 209.00 [lb_av] MEDEN T ([facility]) Body height 65 [in_i] 65 [in_i] [facility] ([facility]) 5'5" Oxygen saturation in Arterial blood by Pulse oximetry 94 % 94 % [facility] ([facility]) Heart rate 78 /min 78 /min [facility] ([facility]) Diastolic blood pressure 80 mm[Hg] 80 mm[Hg] [facility] ([facility]) Systolic blood pressure 128 mm[Hg] 128 mm[Hg] [facility] Body surface area Derived from formula 2.02 m2 2.02 m2 [facility] ([facility]) Body weight 94.802 kg 94.802 kg [facility] ([facility]) Body surface area Derived from formula 1.99 m2 1.99 m2 [facility] ([facility]) Body weight 91.627 kg 91.627 kg [facility] ([facility]) Lyles body weight 136 [lb_av] 136 [lb_av] MEDEN T ([facility]) Body mass index (BMI) [Ratio] 33.6 kg/m2 33.6 k g/m2 [facility] Body weight 202.00 [lb_av] 202.00 [lb_av] MEDEN T ([facility]) Body height 65 [in_i] 65 [in_i] [facility] 5'5" Body temperature 97.8 [degF] 97.8 [degF] [facility] ([facility]) Oxygen saturation in Arterial blood by Pulse oximetry 93 % 93 % [facility] ([facility]) Room Air Heart rate 75 /min 75 /min [facility] ([facility]) Diastolic blood pressure 78 mm[Hg] 78 mm[Hg] MEDENT ([facility]) Systolic blood pressure 128 mm[Hg] 128 mm[Hg] M EDENT ([facility]) Diastolic blood pressure mm[Hg] eCW1 ([facility]) Systolic blood pressure 122 mm[Hg] 122 mm[Hg] e CW1 ([facility]) Body temperature 99.0 [degF] 99.0 [degF] eCW1 ( [facility]) Respiratory rate 17 /min 17 /min eCW1 ([facility]) Heart rate 90 /min 90 /min eCW1 ([facility]) Body mass index (BMI) [Ratio] 37.49 kg/m2 37.49 kg/m2 eCW1 ([facility]) Body height 62 [in_us] 62 [in_us] eCW1 ([facility]) Body weight Measured 205 [lb_av] 205 [lb_av] eC W1 ([facility]) Body weight 93.895 kg 93.895 [facility] Body mass index (BMI) [Ratio] 34.4 kg/m2 34.4 k g/m2 [facility] ([facility]) Body weight 207.00 [lb_av] 207.00 [lb_av] MEDEN T ([facility] ) Body height 65 [in_i] 65 [in_i] MEDENT ([facility], ) 5'5" Diastolic blood pressure 84 mm[Hg] 84 mm[Hg] MEDENT ([facility], ) Systolic blood pressure 122 mm[Hg] 122 mm[Hg] M EDENT ([facility], ) Diastolic blood pressure 80 mm[Hg] 80 mm[Hg] eCW1 ([facility]) Systolic blood pressure 130 mm[Hg] 130 mm[Hg] e CW1 ([facility]) Body temperature [degF] eCW1 ([facility]) Respiratory rate 16 /min 16 /min eCW1 ([facility]) Heart rate 75 /min 75 /min eCW1 ([facility]) Body mass index (BMI) [Ratio] 37.49 kg/m2 37.49 kg/m2 eCW1 ([facility]) Body height 62 [in_us] 62 [in_us] eCW1 ([facility]) Body weight Measured 205 [lb_av] 205 [lb_av] eC W1 ([facility]) Patient Treatment Plan of Care Planned Activity Planned Date Details Description Data Source (s) Sertraline 50 MG Oral Tablet 10/04/2019 12:00:00 AM EDT eCW1 ([facility]) Sertraline 50 MG Oral Tablet 10/04/2019 12:00:00 AM EDT eCW1 ([facility]) Sertraline 50 MG Oral Tablet 10/04/2019 12:00:00 AM EDT eCW1 ([facility]) Doxycycline Monohydrate 100 MG Oral Capsule 07/23/2019 12:00:00 AM EST eCW1 ([facility]) PredniSONE 10 MG 07/23/2019 12:00:00 AM EST eCW1 ([facility])
--- OUTSIDE RECORDS SUMMARY | 2020-09-02 14:45 | CCD | Continuity of Care Document ---
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 AUTM Problems Description No Information Available Social [...] Information Available Procedures Date Code Description Status 08/18/2020 17456 X-Ray Ankle Complete Completed Medical Devices Description No Information Available Encounters Description No Information Available Assessments Date Code Description Provider 08/18/2020 S92.335D Nondisplaced fractur e of third metatarsal bone, left foot, subsequent encounter for fracture with routine healing NEDA [place] 08/18/2020 S82.62xA Displaced fracture o f lateral malleolus of left fibula, initial encounter for closed fracture [place]A [place] Plan of Treatment 08/18/2020 - NEDA [place]* S92.335D Nondisplaced fracture of third metatarsal bone, left foot, subsequent encounter for fracture with routine healing* New Medication:* Percocet 5-325 mg - 1-2 tabs every 4-6 hours prn/pain * Follow up:* 1 week with DPV for left ankle surge eval * S82.62xA Displaced fracture of lateral malleolus of left fibula, initial encounter for closed fracture Functional Status Description No Information Available Mental Status Description No Information Available Referrals Description No Information Available
--- OUTSIDE RECORDS SUMMARY | 2020-09-02 14:45 | CCD ---
Continuity of Care Document (CCD) Created on: 08/27/2020 Crow Jarvis External Reference #: [id number] : 1960 Sex: Male Author Author Crow BOYLE MD Organization Unknown Address [address] [place] [address], [address] [address] Phone [phone] Care Team Providers Care Acting Professor Name Role Phone Becka Durbin AUTM Problems [...] Available Procedures Date Code Description Status 08/26/2020 31945 Apply Splint Short Leg Completed 08/20/2020 44337 Apply Splint Short Leg Completed 08/18/2020 91542 X-Ray Ankle Complete Completed 08/18/2020 98890 Apply Splint Short Leg Completed Medical Devices Description No Information Available Encounters Type Date Location Provider Dx Diagnosis Office Visit 08/26/2020 10:30a [facility] Veronica Boyle MD S8 2.62xA Disp fx of lateral malleolus of left fibula, init S93.05xA Dislocation of left ankle thuy int, initial encounter Office Visit 08/20/2020 5:00p [facility] [place]ED[place] S82.62xA Disp fx of lateral [...]
--- OUTSIDE RECORDS SUMMARY | 2020-09-02 14:45 | CCD | Continuity of Care Document ---
Author Author Crow HILTON MD Organization Unknown Address [address] [place] [address] Phone [phone] Care Team Providers Care Retail Planning Manager Name Role Phone Nedra Lopez M.D. AUTM [phone] Becka Durbin AUTM Problems Active Problems Provider Date Benign neoplasm of colon George Hilton MD Onset: 04/14/20 15 Screening for malignant neoplasm of colon George Hilton MD Onset: 04/14/2015 Internal hemorrhoids without complication George Hilton MD Onset: 04/14/2015 Heartburn George Hilton MD Onset: 04/14/2015 Candidiasis of the esophagus George Hilton MD Onset: 11/2014 Gastroesophageal reflux disease George Hilton MD Onset: 1 Pre-surgery evaluation George Hilton MD Onset: 04/14/2015 History of polyp of colon SHASHI Clemons Onset: 04/14/2015 Gastroesophageal reflux disease SHASHI Clemons Onset: 04/14/2015 Candidiasis of the esophagus SHASHI Clemons Ons et: 04/14/2015 Social History Type Date Description Comments Sex Unknown ETOH Use 2-3 A Day Tobacco Use Start: Unknown Smokes 11/2-2PPD FOR PA ST 41 YEARS--Reports 1 PPD (09-24-2019) Recreational Drug Use Denies Drug Use Smoking Status Reviewed: 06/03/20 Smokes 11/2-2PPD FOR PAST 41 YEARS--Reports 1 PPD (09-24-2019) Allergies, Adverse Reactions, Alerts Active Allergies Reaction Severity Comments Date Terbinafine Hives 02/12/2019 Inactive Allergies NKDA 04/06/2010 Medications Active Medications SIG Qnty Indications Ordering Provide r Date Albuterol Sulfate HFA 108(90Base) mcg/Act Aerosol Inhale 2 Puffs By Mouth Once Daily as Needed 18units Sandeep Jeffers MD 05/29/2020 Breo Ellipta 200-25mcg/Inh Aerosol 1 puff every day 60units Sandeep Jeffers MD 12/10/2019 Spiriva Respimat 1.25mcg/Act Aeros ol 1 puff every Daily 12gm Sandeep Jeffers MD 04/17/2019 Autopap Device 4-20cm marras Sandeep Jeffers MD 02/13/2019 Immunizations Description No Information Available Vital Signs Date Vital Result Comment 06/03/2020 8:53am BP Systolic 128 mmHg BP Diastolic 80 mmHg Heart Rate 78 /min O2 % BldC Oximetry 94 % Height 65 inches 5'5" Weight 209.00 lb BMI (Body Mass Index) 34.8 kg/m2 [place] Body Weight 136 lb Weight 94.802 kg BSA (Body Surface Area) 2.02 m2 12/10/2019 11:06am BP Systolic 128 mmHg BP Diastolic 78 mmHg Heart Rate 75 /min O2 % BldC Oximetry 93 % Room Air Body Temperature 97.8 F Height 65 inches 5'5" Weight 202.00 lb BMI (Body Mass Index) 33.6 kg/m2 [place] Body Weight 136 lb Weight 91.627 kg BSA (Body Surface Area) 1.99 m2 Results Test Acquired Date Facility Test Result H/L Range Note Laboratory test finding 05/12/2020 [facility] [address] [place] [address] [phone] Pathology Request For Service (SEE NOTE) 1 1 FINAL DIAGNOSIS Colon, descending polyps, snare polypectomy: Hyperplastic polyps. 05/13/2020 - 1143 CLINICAL DIAGNOSIS History colon polyps 05/12/2020 - 1517 GROSS DIAGNOSIS Received in formalin labeled "polyps in descending colon" are multiple fragments of ramirez tissue and fecal material measuring 0.8 x 0.6 x 0.2 cm in aggregate. All in one. -SV 05/12/2020 - 1517 Signed NAOMI CARCAMO MD 05/13/2020 1435 Procedures Date Code Description Status 05/12/2020 57960 Colonoscopy W/ Poly Completed Medical Devices Description No Information Available Encounters Type Date Location Provider Dx Diagnosis Office Visit 06/03/2020 8:45a [facility] Pulmonary/Thoracic Lawrenc ag Jeffers MD R91.8 Other nonspecific abnormal finding of mehdi ng field J44.9 Chronic obstructive pulmonar y disease, unspecified F17.218 Nicotine dependence, cigaret mihir, w oth disorders Assessments Date Code Description Provider 06/03/2020 R91.8 Other nonspecific abnormal findi ng of lung field Sandeep Jeffers MD 06/03/2020 J44.9 Chronic obstructive pulmonary di sease, unspecified Sandeep Jeffers MD 06/03/2020 F17.218 Nicotine dependence, cigarettes, with other nicotine-induced disorders Sandeep Jeffers MD 05/12/2020 Z12.11 Encounter for screening for tenzin gnant neoplasm of colon George Hilton MD 05/12/2020 Z86.010 Personal history of colonic poly ps George Hilton MD 05/12/2020 K63.5 Polyp of colon George Hilton MD 05/12/2020 K57.30 Diverticulosis of la rge intestine without perforation or abscess without bleeding George Hilton MD Plan of Treatment Future Appointment(s):* 12/01/2020 8:45 am - Sandeep Jeffers MD at [facility] Pulmonary/Thoracic 06/03/2020 - Sandeep Jeffers MD* R91.8 Other nonspecific abnormal finding of lung field * J44.9 Chronic obstructive pulmonary disease, unspecified * F17.218 Nicotine dependence, cigarettes, with other nicotine-induced disorders * * New Labs:* FVL/[place], Scheduled: 12/01/20 * New Xrays:* CT Chest No Contrast, Ordered: 06/03/20 * Comments:* ~ At this point, I have urged him to follow through with his plans for smoking cessation. He has done well with his other personal habits. ~ He will need a scan in 6 months to reach 2 years of radiographic stability. If that is unchanged, we will switch to low-dose CT scanning for surveillance.~ We will get a spirometry and flow volume loop with his next visit for his lung disease.~ I have asked him to be quite aggressive with his rescue inhaler, as if it really makes a difference and he requires it for more than a day or so, he is to let us know, and we will get him some prednisone.~ I have urged him to get his flu shot.~ Otherwise, we will see him in return as outlined above or sooner if problems arise with which we can be of assistance. * Follow up:* Follow up in six months with a chest CT/ fvl Functional Status Description No Information Available Mental Status Description No Information Available Referrals Refer to Reason for Referral Status Appt Date Radiology/Procedure [address] CT CHEST NO CONSTRAST Closed
--- OUTSIDE RECORDS SUMMARY | 2020-09-02 14:45 | CCD | Continuity of Care Document ---
Author Author rCow DAMIAN PA Organization Unknown Address [address] [place] [address], [address] [address] Phone [phone] Care Team Providers Care Recreation Officer Name Role Phone Becka Durbin HAT PRESSER AUTM [phone] Problems Description No Information Available Social [...] Available Procedures Date Code Description Status 08/18/2020 03394 X-Ray Ankle Complete Completed 08/18/2020 24056 FX Lateral Malleolus (Distal Fib alee) W/O Manipulation Completed Medical Devices Description No Information Available Encounters Type Date Location Provider Dx Diagnosis Office Visit 08/18/2020 3:15p [place]EDA [place] S82.62xA Disp fx of lateral malleolus of left fibula, init Assessments Date Code Description Provider 08/20/2020 S82.62xD Displaced fracture o f lateral malleolus of left fibula, subsequent encounter for closed fracture with routine healing NEDA [place] 08/18/2020 S82.62xA Displaced fracture o f lateral malleolus of left fibula, initial encounter for closed fracture NEDA [place] Plan of Treatment Future Appointment(s):* 09/03/2020 3:15 pm - Veronica Boyle MD at [facility] 08/20/2020 - N[place]A [place]* S82.62xD Displaced fracture of lateral malleolus of left fibula, subsequent encounter for closed fracture with routine healing* Follow up:* already has sched william Functional Status Description No Information Available Mental Status Description No Information Available Referrals Description No Information Available
[2020-09-02] MEDS ORDERED: ceFAZolin 1GM VIAL (J0690 PER 500MG) As Ordered ONE (18:43)
[2020-09-02] MEDS ORDERED: propofoL 200 MG/20 ML VIAL As Ordered ONE (19:13)
[2020-09-02] MEDS ORDERED: ONDANSETRON 4MG/2ML VIAL As Ordered ONE (19:13)
[2020-09-02] MEDS ORDERED: MIDAZOLAM INJ 2MG/2ML VIAL (J2250 PER 1MG) As Ordered ONE (19:13)
[2020-09-02] MEDS ORDERED: fentaNYL 100 MCG/2 ML INJECTION (J3010) As Ordered ONE ×2 (19:13→19:18)
[2020-09-02] MEDS ORDERED: METOCLOPRAMIDE INJ 10MG/2ML VIAL (J2765 PER 1) As Ordered ONE (19:13)
[2020-09-02] MEDS ORDERED: dexameTHASONE 4 MG/ML 1ML VIAL (J1100 PER 1MG) As Ordered ONE (19:13)
[2020-09-02] MEDS ORDERED: LIDOCAINE 2% 100MG/5ML SDV (FOR ANES.) As Ordered ONE (19:13)
[2020-09-02] MEDS ORDERED: ONDANSETRON 4MG/2ML VIAL IV PRN (21:30)
[2020-09-02] MEDS ORDERED: LR 1,000 ML IV SCH (21:30)
[2020-09-02] MEDS: fentaNYL 100 MCG/2 ML INJECTION (J3010) IV PRN ×4 (21:33→21:51)
[2020-09-02] MEDS: oxyCODONE 5MG TAB PO PRN ×2 (21:33→22:01)
[2020-09-02] MEDS ORDERED: ALBUTEROL 90 MCG/ACT 8GM HFA INHALER INH PRN (21:45)
[2020-09-02] MEDS ORDERED: HYDROMORPHONE HCL 0.5 MG/ 0.5 ML SYRINGE (J1170 PER 1) IV PRN (21:45)
[2020-09-02] MEDS ORDERED: MORPHINE 2 MG/ML 1ML VIAL (J2270) IV PRN (21:45)
[2020-09-02] MEDS ORDERED: NORCO, ANEXSIA 5/325MG TABLET (HYDROcodone/ACETAMINOPHEN) PO PRN ×2 (21:45)
[2020-09-02 22:30] VITALS: BP 145/91
[2020-09-02] MEDS: LR 1,000 ML IV SCH (22:41)
[2020-09-02 23:30] VITALS: BP 137/90
[2020-09-03 00:30] VITALS: BP 135/88
[2020-09-03 01:30] VITALS: BP 133/86
[2020-09-03 06:00] VITALS: BP 150/86
[2020-09-03] MEDS: LR 1,000 ML IV SCH (06:08)
[2020-09-03] MEDS ORDERED: HYDR-3713 PO (06:39)
[2020-09-03] MEDS ORDERED: ECOT81TA5 PO (06:39)
--- NOTE | 2020-09-03 08:18 | REP ---
INDICATION: ORIF ANKLE, LEFT. COMPARISON: None. TECHNIQUE: Nine views, 66.0 seconds of fluoroscopy time is reported. FINDINGS: A sequence of 9 last image hold fluoroscopically obtained spot radiographs of the ankle document open reduction internal fixation distal fibular screw plate application. No visible laterality markers. IMPRESSION: Procedural imaging. <Electronically signed by Mohsen Sullivan > 09/03/20 7989
[2020-09-03] MEDS ORDERED: MIRALAX *UNIT DOSE* 17GM PACKET PO SCH (09:00)
--- NOTE | 2020-09-03 09:16 | RO ---
OPERATIVE NOTE DATE OF OPERATION: 09/02/2020 PREOPERATIVE DIAGNOSIS: Left ankle fracture. POSTOPERATIVE DIAGNOSIS: Left ankle fracture. PROCEDURE: Open reduction and internal fixation of left ankle fracture with repair of medial deltoid. SURGEON: Veronica Boyle MD VENEER MEASURER: ANESTHESIA: General endotracheal tube anesthesia. COMPLICATIONS: None. ESTIMATED BLOOD LOSS: 50 mL. INDICATIONS: This is a 60-year-old male who presented a couple of weeks ago with fracture dislocation of the left ankle with significant swelling and blistering and we had to delay surgery until the soft tissues envelope had healed. He now presents for repair. DESCRIPTION OF PROCEDURE: Antibiotics were given intravenously preoperatively. Successful general endotracheal tube anesthetic was established. Tourniquet placed on left upper thigh, not inflated. Left lower extremity was carefully prepped and draped in usual sterile fashion. Leg was elevated. After appropriate time out the tourniquet was inflated. We first addressed the lateral portion of the ankle by making a skin incision. Bovie cautery was used to coagulate the crossing vessels. We exposed the fracture site subperiosteally and cleared out the healing callus within the fracture. We irrigated and used curettes to remove healing bony tissue. An open anatomic reduction was performed using the lobster claw clamp getting the distal fibula out to length and confirmed under fluoroscopic image. I then noted that we had difficulty getting the medial clear space to close and there was small brigid of bone noted on the preoperative x-rays and significant displacement of the fracture noted initially, I thought possibly there was soft tissue interpositioned. I did make a small anteromedial arthrotomy incision medially. Bovie cautery was used to coagulate crossing vessels. The saphenous vein was protected and reflected anteriorly. I was able to enter into the fracture site and using [place] elevator I was able to tease out some thick fibrous tissue that was indeed in the medial clear space and likely representing a portion of the deltoid ligament and/or other scar tissue. This was teased out and the medial clear space would close against the talus better but it did keep falling back in place so I used a 2-0 PDS suture to pass it in horizontal fashion through this tissue and then passed the sutures through the bone over the medial malleolus to help perform essentially deltoid ligament equivalent repair to keep the soft tissue from falling back into the ankle joint. We then turned our attention back to the distal fibula. An interfragmentary compression screw was then performed across the fracture site. I did this through small separate anterior stab incision spreading with hemostat down to bone and then using 3.5 and then 2.5 drill to drill across the fracture site and measure with the depth gauge and did this under direct visualization. The 3.5 cortical screw was passed but it did not have good purchase, the bone was quite soft across and I switched it out to a cancellous screw and this had better purchase. I then contoured an 8-hole one-third tubular plate to bridge the fracture site as neutralization plate. First the distal-most screw was placed after drilling with 2.5 drill and using cancellous screw. I then placed next the most proximal cancellous screw in the fibular plate and from then on I applied a 3.5 cortical screw on the proximal portion of the fracture through the plate. I then filled the remaining three holes proximally. There was a butterfly fragment which I reduced to the fibula above the fracture site and clamped it in place as I drilled and passed the 3.5 cortical screw to hold that in position. At this point fluoroscopic imaging was performed and the hardware appeared to be in good position but there was some persistent talar tilt. It had the appearance of medial clear space opening but the mortise did not appear to be unstable. I did the Cotton test using the pointed reduction forceps and grabbing on the mortise under fluoroscopic imaging and pulling and I could not demonstrate that the mortise actually would open but clearly the medial clear space would open as the talus would tilt indicative of more or less a deltoid insufficiency in that plane but I did not think that I could correct that with a syndesmotic screw as it did not appear that the syndesmosis itself was unstable. Thus, at this point I felt that mortise was well reduced; he had some talar tilting that could be secured and held in position with a cast and the deltoid repair. The tourniquet was released at this point; we copiously irrigated all the wounds thoroughly. I closed the medial wound first with johanna and the lateral wound I was able to close the periosteal tissues and deep fascial tissues over the plate followed by staple closure for the skin. Adaptic, dry, sterile bulky dressing and short leg well padded plaster cast was applied and molded appropriately. He tolerated it well. He was awakened from general endotracheal tube anesthesia and transferred to the recovery room in stable condition.
--- NOTE | 2020-09-05 00:22 | ECGEPIP ---
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
== END 2020-09-03 12:41 | disposition home or self-care (01) ==
LOC: M SDC 14:41 → M MS5PR 22:27 → M SDC 09-03 12:41
PROVIDERS: ATTEND Orthopaedic Surgery
DX: S82.62XA Displaced fracture of lateral malleolus of left fibula, initial encounter for closed fracture (principal); S93.05XA Dislocation of left ankle joint, initial encounter; K64.8 Other hemorrhoids; G47.33 Obstructive sleep apnea (adult) (pediatric); J45.909 Unspecified asthma, uncomplicated; R06.83 Snoring; X58.XXXA Exposure to other specified factors, initial encounter; Y93.9 Activity, unspecified; Y92.9 Unspecified place or not applicable; Y99.9 Unspecified external cause status; Z72.0 Tobacco use
CPT/HCPCS: 27814; 76000; 93005; 97161; C1713; J0690; J1100; J2250; J2405; J2765; J3010

== ENCOUNTER → 2020-09-23 | Outpatient (CLI) | payer BC ==
[~2020-09-23] MED LIST changes: +ECOT81TA5 PO; +HYDR-3713 PO; -LIDOCAINE 1% MDV 20ML VIAL SQ PRN; -LR 1,000 ML IV ONE; -ceFAZolin SOD 2 GM in IV 1 EA IV ONE
[2020-09-24 18:09] LABS: PSA TOTAL 3.8 ng/mL (0.0-4.0)
== END ==
LOC: M LAB 12:34
PROVIDERS: ATTEND Urology
DX: R97.20 Elevated prostate specific antigen [PSA] (principal)

== ENCOUNTER → 2020-11-18 | Outpatient (REF) ==
--- NOTE | 2020-11-18 11:12 | REPPI ---
INDICATION: DISABILITY DETERMINATION COMPARISON: None. TECHNIQUE: AP and lateral views of the left tibia/fibula. FINDINGS: Evidence for prior open reduction and fixation for distal fibula fracture. Remainder of the examination is essentially age-appropriate. IMPRESSION: Essentially age-appropriate examination. Satisfactory fixation for distal fibular fracture. <Electronically signed by Georges Garcia > 11/18/20 1103
--- NOTE | 2020-11-18 11:14 | REPPI ---
INDICATION: DISABILITY DETERMINATION COMPARISON: None. TECHNIQUE: AP, lateral, bilateral oblique views. FINDINGS: Evidence for prior satisfactory open reduction and fixation for distal fibular fracture. Overlying soft tissue swelling and heterogeneous changes to the visualized ankle/midfoot suggest associated posttraumatic degenerative changes. No new acute fracture or dislocation. Small calcified densities at the medial malleolus also likely related to old injury. IMPRESSION: Evidence for prior trauma and fixation with associated moderate posttraumatic degenerative changes of the ankle and midfoot. <Electronically signed by Georges Garcia > 11/18/20 [id number]
== END ==
LOC: M PLAIMG 10:28
PROVIDERS: ATTEND Internal Medicine
DX: Z02.71 Encounter for disability determination (principal); M19.172 Post-traumatic osteoarthritis, left ankle and foot; Z87.81 Personal history of (healed) traumatic fracture

== ENCOUNTER → 2021-08-03 | Outpatient (CLI) | payer BC | LOC: M RAD 11:16 | PROVIDERS: ATTEND Internal Medicine Pulmonary Disease | DX: R91.8 Other nonspecific abnormal finding of lung field (principal) ==

== ENCOUNTER → 2022-12-20 | Outpatient (CLI) | payer BC | LOC: M RAD 08:36 | PROVIDERS: ATTEND Internal Medicine Pulmonary Disease | DX: Z87.891 Personal history of nicotine dependence (principal) ==

== ENCOUNTER 2022-12-30 11:55 | Emergency (ER) | payer BC ==
[~2022-12-30] VITALS: Ht 162.6 cm; Wt 86.4 kg
[2022-12-30] MEDS ORDERED: NAPR-885 PO (13:48)
[2022-12-30 13:56] VITALS: BP 130/72; TEMP 97.2; O2SAT 97
== END 2022-12-30 14:04 | disposition home or self-care (01) ==
LOC: M ED 11:55
DX: M76.52 Patellar tendinitis, left knee (principal); J44.9 Chronic obstructive pulmonary disease, unspecified; F17.200 Nicotine dependence, unspecified, uncomplicated; Z79.51 Long term (current) use of inhaled steroids; Z79.899 Other long term (current) drug therapy

== ENCOUNTER 2024-01-18 08:36 | Inpatient (IN) | payer BC, SELFPAY ==
[2024-01-18] VITALS (20 sets, daily range): BP systolic 98–107; BP diastolic 54–59; TEMP 97.8; O2SAT 92–98
[~2024-01-18] VITALS: Ht 162.6 cm; Wt 96.5 kg
[~2024-01-18 08:36] MED LIST changes: +NAPR-885 PO
[2024-01-18] MEDS ORDERED: ACET1TAB55 PO (09:06)
[2024-01-18 09:44] LABS: BASO # 0.1 10^3/uL (0.0-0.2); BASO % 0.6 % (0.0-1.0); EOS # 0.5 10^3/uL (0.0-0.5); EOS % 4.6 % (0.0-3.0); HEMATOCRIT 47.7 % (42.0-52.0); HEMOGLOBIN 14.7 g/dl (13.5-17.5); LYMPH # 1.5 10^3/uL (1.5-5.0); LYMPH % 15.2 % (24.0-44.0); MEAN CORPUSCULAR HEMOGLOBIN 27.7 pg (27.0-33.0); MEAN CORPUSCULAR HGB CONC 30.8 g/dl (32.0-36.5); MEAN CORPUSCULAR VOLUME 89.8 fl (80.0-96.0); MONO # 0.8 10^3/uL (0.0-0.8); MONO % 8.3 % (2.0-8.0); NEUTROPHILS # 6.9 10^3/uL (1.5-8.5); NEUTROPHILS % 70.1 % (36.0-66.0); PLATELET COUNT, AUTOMATED 268 10^3/uL (150-450); RED BLOOD COUNT 5.31 10^6/uL (4.30-6.10); WHITE BLOOD COUNT 9.9 10^3/uL (4.0-10.0)
[2024-01-18] MEDS: methylPREDNISolone 125MG 2ML VIAL IV ONE (09:48)
[2024-01-18] MEDS: ALBUTEROL SULFATE 2.5MG/0.5ML INH NEB SOLN INH SCH (09:51)
[2024-01-18 10:14] LABS: ALBUMIN 3.7 G/DL (3.2-5.2); ALKALINE PHOSPHATASE 121 U/L (46-116); ALT/SGPT 25 U/L (7.0-40); AST/SGOT 15 U/L (<34); BILIRUBIN,DIRECT 0.1 MG/DL (<0.4); BILIRUBIN,TOTAL 0.4 MG/DL (0.3-1.2); BLOOD UREA NITROGEN 15 MG/DL (9-23); CALCIUM LEVEL 8.9 MG/DL (8.3-10.6); CARBON DIOXIDE LEVEL 36 MMOL/L (20-31); CHLORIDE LEVEL 104 MMOL/L (98-107); GLOMERULAR FILTRATION RATE > 60.0 (>49); GLUCOSE, FASTING 87 MG/DL (74-106); POTASSIUM SERUM 4.5 MMOL/L (3.5-5.1); SODIUM LEVEL 141 MMOL/L (136-145); TOTAL PROTEIN 6.6 G/DL (5.7-8.2)
[2024-01-18] MEDS: ONDANSETRON 4MG 2ML VIAL IV ONE (11:01)
[2024-01-18] MEDS: MORPHINE 2 MG/ML 1ML VIAL IV PRN (11:02)
[2024-01-18] MEDS: NALOXONE 2MG/2ML SYRINGE IV STA (11:32)
[2024-01-18] MEDS ORDERED: ISOVUE-370 76% 100ML VIAL As Ordered ONE (11:32)
[2024-01-18 11:53] LABS: ABG BASE EXCESS 2.8 (-2.0-2.0); ABG HCO3 30.9 MMOL/L (22.0-26.0); ABG O2 SATURATION 88.3 % (95.0-99.0); ABG STANDARD HCO3 26.7 MMOL/L. (22.0-26.0); ABG TOTAL CO2 32.8 MMOL/L (23.0-31.0); ABG pH (ARTERIAL) 7.312 UNITS (7.350-7.450)
[2024-01-18 12:00] LABS: ABG PARTIAL PRESSURE CO2 62.4 mmHg (35.0-45.0)
[2024-01-18] MEDS: AZITHROMYCIN INJ 500 MG, VIAL MATE ADAPTER 1 EACH in D5W 250 ML IV ONE (13:07)
[2024-01-18] MEDS: cefTRIAXone SOD 1 GM in D5W MINI-BAG PLUS 50 ML IV ONE (13:07)
[2024-01-18] MEDS: ALBUTEROL SULFATE 2.5MG/0.5ML INH NEB SOLN NEB ONE (13:11)
[2024-01-18 13:46] LABS: ABG BASE EXCESS -2.7 (-2.0-2.0); ABG HCO3 28.6 MMOL/L (22.0-26.0); ABG O2 SATURATION 91.5 % (95.0-99.0); ABG PARTIAL PRESSURE O2 71.5 mmHg (75.0-100.0); ABG STANDARD HCO3 22.1 MMOL/L. (22.0-26.0); ABG TOTAL CO2 31.1 MMOL/L (23.0-31.0); ABG pH (ARTERIAL) 7.154 UNITS (7.350-7.450)
[2024-01-18 13:47] LABS: ABG PARTIAL PRESSURE CO2 83.2 mmHg (35.0-45.0)
[2024-01-18] MEDS ORDERED: NAPR-885 PO (15:23)
[2024-01-18] MEDS ORDERED: ZOLO100T PO (15:23)
[2024-01-18] MEDS ORDERED: HOME MED LIST COMPLETE! XX SCH (15:25)
[2024-01-18 15:39] LABS: VENOUS BASE EXCESS -3.7 (-2.0-2.0); VENOUS HCO3 27.8 MMOL/L (23.0-27.0); VENOUS O2 SATURATION 96.8 % (60.0-80.0); VENOUS PARTIAL PRESSURE CO2 83.3 mmHg (38.0-50.0); VENOUS PARTIAL PRESSURE O2 100.8 mmHg (30.0-50.0); VENOUS PH 7.141 UNITS (7.330-7.430); VENOUS STANDARD HCO3 21.4 MMOL/L; VENOUS TOTAL CO2 30.3 MMOL/L (24.0-28.0)
[2024-01-18 15:47] LABS: PHOSPHORUS LEVEL 3.9 MG/DL (2.4-5.1)
[2024-01-18 17:55] LABS: ABG BASE EXCESS 1.2 (-2.0-2.0); ABG HCO3 32.9 MMOL/L (22.0-26.0); ABG O2 SATURATION 94.4 % (95.0-99.0); ABG PARTIAL PRESSURE CO2 90.4 mmHg (35.0-45.0); ABG PARTIAL PRESSURE O2 78.8 mmHg (75.0-100.0); ABG STANDARD HCO3 25.5 MMOL/L. (22.0-26.0); ABG TOTAL CO2 35.7 MMOL/L (23.0-31.0); ABG pH (ARTERIAL) 7.179 UNITS (7.350-7.450)
[2024-01-18] MEDS ORDERED: SODIUM BICARBONATE 8.4% INJ 50ML SYRINGE As Ordered ONE (18:08)
[2024-01-18] MEDS ORDERED: MIDAZOLAM 5MG/ML 1ML VIAL As Ordered ONE (18:14)
[2024-01-18] MEDS: SODIUM BICARBONATE 8.4% INJ 50ML SYRINGE IV STA ×3 (18:21→18:23)
[2024-01-18] MEDS: MIDAZOLAM 5MG/ML 1ML VIAL IV STA ×2 (18:22→19:31)
[2024-01-18] MEDS: ROCURONIUM BROMIDE 50MG/5ML VIAL IV SCH (18:23)
[2024-01-18] MEDS: propofoL 1,000 MG in IV 1 EA IV SCH (18:39)
[2024-01-18] MEDS: MIDAZOLAM 100MG/100ML-0.9%NACL 100 MG in IV 1 EA IV SCH (19:22)
[2024-01-18] MEDS ORDERED: SYMBICORT 160/4.5MCG INHALER 6GM INH SCH (20:00)
[2024-01-18] MEDS: IPRATROPIUM 0.5MG/ALBUTEROL 2.5MG INH SOL UD 3ML (DUONEB) NEB SCH (20:28)
[2024-01-18] MEDS: FORMOTEROL FUMARATE 20 MCG/2 ML INHALATION SOLUTION (PERFOROMIST) INH SCH (20:30)
[2024-01-18] MEDS: BUDESONIDE 0.5 MG/2 ML INHALATION SUSPENSION NEB SCH (20:31)
[2024-01-18 20:43] LABS: VENOUS BASE EXCESS 4.1 (-2.0-2.0); VENOUS O2 SATURATION 99.7 % (60.0-80.0); VENOUS PARTIAL PRESSURE CO2 56.3 mmHg (38.0-50.0); VENOUS PARTIAL PRESSURE O2 203.9 mmHg (30.0-50.0); VENOUS PH 7.359 UNITS (7.330-7.430); VENOUS STANDARD HCO3 28.1 MMOL/L; VENOUS TOTAL CO2 32.7 MMOL/L (24.0-28.0)
[2024-01-18] MEDS: ENOXAPARIN 40MG/0.4ML SYRINGE (J1650 PER 10MG) SC SCH (21:01)
[2024-01-19] VITALS (53 sets, daily range): BP systolic 100–123; BP diastolic 50–63; TEMP 98.2–101.9; O2SAT 92–97
[2024-01-19] MEDS: SODIUM CHLORIDE 0.9% 1000ML IV ONE (01:07)
[2024-01-19 08:28] LABS: ABG BASE EXCESS 7.3 (-2.0-2.0); ABG HCO3 32.6 MMOL/L (22.0-26.0); ABG O2 SATURATION 97.4 % (95.0-99.0); ABG PARTIAL PRESSURE CO2 48.7 mmHg (35.0-45.0); ABG PARTIAL PRESSURE O2 94.7 mmHg (75.0-100.0); ABG STANDARD HCO3 31.1 MMOL/L. (22.0-26.0); ABG TOTAL CO2 34.1 MMOL/L (23.0-31.0); ABG pH (ARTERIAL) 7.444 UNITS (7.350-7.450)
[2024-01-19 08:36] LABS: HEMATOCRIT 43.1 % (42.0-52.0); HEMOGLOBIN 13.3 g/dl (13.5-17.5); MEAN CORPUSCULAR HEMOGLOBIN 26.8 pg (27.0-33.0); MEAN CORPUSCULAR HGB CONC 30.9 g/dl (32.0-36.5); MEAN CORPUSCULAR VOLUME 86.7 fl (80.0-96.0); PLATELET COUNT, AUTOMATED 273 10^3/uL (150-450); RED BLOOD COUNT 4.97 10^6/uL (4.30-6.10); WHITE BLOOD COUNT 12.5 10^3/uL (4.0-10.0)
[2024-01-19] MEDS: methylPREDNISolone 40MG 1ML VIAL IV SCH ×2 (09:06→20:19)
[2024-01-19 09:09] LABS: BLOOD UREA NITROGEN 29 MG/DL (9-23); CALCIUM LEVEL 8.9 MG/DL (8.3-10.6); CARBON DIOXIDE LEVEL 34 MMOL/L (20-31); CHLORIDE LEVEL 100 MMOL/L (98-107); CREATININE FOR GFR 1.07 MG/DL (0.70-1.30); GLOMERULAR FILTRATION RATE > 60.0 (>49); GLUCOSE, FASTING 136 MG/DL (74-106); POTASSIUM SERUM 4.5 MMOL/L (3.5-5.1); SODIUM LEVEL 142 MMOL/L (136-145)
[2024-01-19] MEDS: ACETAMINOPHEN *IV* 1,000 MG in IV 1 EA IV PRN (10:02)
[2024-01-19] MEDS: LR 1,000 ML IV SCH (10:09)
[2024-01-19] MEDS: MIDAZOLAM INJ 2MG/2ML VIAL IV ONE (12:32)
[2024-01-19] MEDS: cefTRIAXone SOD 1 GM in D5W MINI-BAG PLUS 50 ML IV SCH (12:33)
[2024-01-19] MEDS: AZITHROMYCIN INJ 500 MG, VIAL MATE ADAPTER 1 EACH in NS 250 ML IV SCH (12:33)
[2024-01-19 12:35] LABS: PROCALCITONIN 0.06 ng/ml
[2024-01-19] MEDS: PANTOPRAZOLE 40MG VIAL IV SCH (20:18)
[2024-01-19] MEDS: fentaNYL CITRATE/NaCl 1,000 MCG in IV 1 EA IV SCH (20:22)
[2024-01-20] VITALS (36 sets, daily range): BP systolic 100–120; BP diastolic 55–73; TEMP 97.2–98.6; O2SAT 91–97
[2024-01-20 06:01] LABS: HEMATOCRIT 42.4 % (42.0-52.0); HEMOGLOBIN 12.9 g/dl (13.5-17.5); MEAN CORPUSCULAR HEMOGLOBIN 26.5 pg (27.0-33.0); MEAN CORPUSCULAR HGB CONC 30.4 g/dl (32.0-36.5); MEAN CORPUSCULAR VOLUME 87.1 fl (80.0-96.0); PLATELET COUNT, AUTOMATED 267 10^3/uL (150-450); RED BLOOD COUNT 4.87 10^6/uL (4.30-6.10); WHITE BLOOD COUNT 16.3 10^3/uL (4.0-10.0)
[2024-01-20 06:04] LABS: ABG HCO3 35.8 MMOL/L (22.0-26.0); ABG O2 SATURATION 96.2 % (95.0-99.0); ABG PARTIAL PRESSURE CO2 58.3 mmHg (35.0-45.0); ABG PARTIAL PRESSURE O2 82.1 mmHg (75.0-100.0); ABG STANDARD HCO3 32.7 MMOL/L. (22.0-26.0); ABG TOTAL CO2 37.6 MMOL/L (23.0-31.0); ABG pH (ARTERIAL) 7.406 UNITS (7.350-7.450)
[2024-01-20 06:37] LABS: ALBUMIN 3.1 G/DL (3.2-5.2); ALKALINE PHOSPHATASE 73 U/L (46-116); ALT/SGPT 20 U/L (7.0-40); AST/SGOT 8 U/L (<34); BILIRUBIN,TOTAL 0.3 MG/DL (0.3-1.2); BLOOD UREA NITROGEN 35 MG/DL (9-23); CALCIUM LEVEL 8.7 MG/DL (8.3-10.6); CARBON DIOXIDE LEVEL 37 MMOL/L (20-31); CHLORIDE LEVEL 100 MMOL/L (98-107); CREATININE FOR GFR 0.84 MG/DL (0.70-1.30); GLOMERULAR FILTRATION RATE > 60.0 (>49); GLUCOSE, FASTING 139 MG/DL (74-106); POTASSIUM SERUM 4.5 MMOL/L (3.5-5.1); SODIUM LEVEL 140 MMOL/L (136-145); TOTAL PROTEIN 5.6 G/DL (5.7-8.2)
[2024-01-20] MEDS ORDERED: dexmedeTOMidine 200 MCG in IV 1 EA IV SCH (09:00)
[2024-01-20 10:23] LABS: ABG BASE EXCESS 6.8 (-2.0-2.0); ABG HCO3 33.7 MMOL/L (22.0-26.0); ABG O2 SATURATION 96.1 % (95.0-99.0); ABG PARTIAL PRESSURE CO2 58.2 mmHg (35.0-45.0); ABG PARTIAL PRESSURE O2 84.5 mmHg (75.0-100.0); ABG STANDARD HCO3 30.6 MMOL/L. (22.0-26.0); ABG TOTAL CO2 35.5 MMOL/L (23.0-31.0); ABG pH (ARTERIAL) 7.381 UNITS (7.350-7.450)
[2024-01-20] MEDS ORDERED: IPRATROPIUM 0.5MG/ALBUTEROL 2.5MG INH SOL UD 3ML (DUONEB) NEB PRN (17:00)
[2024-01-20 17:31] LABS: LIPASE 21 U/L (12-53)
[2024-01-20 17:33] LABS: AMYLASE 56 U/L (30-118)
[2024-01-20] MEDS: ADVAIR HFA 230/21MCG INHALER INH SCH (19:45)
[2024-01-20] MEDS: ACETAMINOPHEN TAB 650MG DOSE (2X325MG) PO PRN (20:46)
[2024-01-20] MEDS: DOXYCYCLINE HYCLATE 100MG TABLET PO SCH (20:46)
[2024-01-21] VITALS (22 sets, daily range): BP systolic 118–133; BP diastolic 60–74; TEMP 97.9–98.3; O2SAT 89–97
[2024-01-21 05:40] LABS: HEMOGLOBIN 13.9 g/dl (13.5-17.5); MEAN CORPUSCULAR HGB CONC 30.2 g/dl (32.0-36.5); MEAN CORPUSCULAR VOLUME 89.3 fl (80.0-96.0); PLATELET COUNT, AUTOMATED 243 10^3/uL (150-450); RED BLOOD COUNT 5.15 10^6/uL (4.30-6.10); WHITE BLOOD COUNT 16.7 10^3/uL (4.0-10.0)
[2024-01-21 06:16] LABS: ALBUMIN 3.1 G/DL (3.2-5.2); ALKALINE PHOSPHATASE 74 U/L (46-116); ALT/SGPT 22 U/L (7.0-40); AST/SGOT 15 U/L (<34); BILIRUBIN,TOTAL 0.4 MG/DL (0.3-1.2); BLOOD UREA NITROGEN 32 MG/DL (9-23); CARBON DIOXIDE LEVEL 38 MMOL/L (20-31); CHLORIDE LEVEL 101 MMOL/L (98-107); CREATININE FOR GFR 0.71 MG/DL (0.70-1.30); GLOMERULAR FILTRATION RATE > 60.0 (>49); GLUCOSE, FASTING 124 MG/DL (74-106); POTASSIUM SERUM 5.5 MMOL/L (3.5-5.1); SODIUM LEVEL 140 MMOL/L (136-145)
[2024-01-21] MEDS: TIOTROPIUM INHALER/CAPSULE (SPIRIVA) INH SCH (07:23)
[2024-01-21] MEDS: SOD POLYSTYRENE SULFONATE SUSP 15GM 60ML UD PO ONE (08:06)
[2024-01-21] MEDS: ATORVASTATIN 20 MG TAB PO SCH (08:06)
[2024-01-21] MEDS: SERTRALINE 100 MG TAB PO SCH (08:06)
[2024-01-22] VITALS (26 sets, daily range): BP systolic 121–154; BP diastolic 65–83; TEMP 97.1–98.8; O2SAT 86–97
[2024-01-22 07:29] LABS: HEMATOCRIT 44.1 % (42.0-52.0); HEMOGLOBIN 13.4 g/dl (13.5-17.5); MEAN CORPUSCULAR HEMOGLOBIN 27.1 pg (27.0-33.0); MEAN CORPUSCULAR HGB CONC 30.4 g/dl (32.0-36.5); MEAN CORPUSCULAR VOLUME 89.1 fl (80.0-96.0); PLATELET COUNT, AUTOMATED 250 10^3/uL (150-450); RED BLOOD COUNT 4.95 10^6/uL (4.30-6.10); WHITE BLOOD COUNT 13.3 10^3/uL (4.0-10.0)
[2024-01-22 07:57] LABS: ALBUMIN 3.2 G/DL (3.2-5.2); ALKALINE PHOSPHATASE 80 U/L (46-116); ALT/SGPT 51 U/L (7.0-40); AST/SGOT 30 U/L (<34); BILIRUBIN,TOTAL 0.4 MG/DL (0.3-1.2); BLOOD UREA NITROGEN 27 MG/DL (9-23); CALCIUM LEVEL 9.1 MG/DL (8.3-10.6); CARBON DIOXIDE LEVEL 36 MMOL/L (20-31); CHLORIDE LEVEL 100 MMOL/L (98-107); CREATININE FOR GFR 0.69 MG/DL (0.70-1.30); GLOMERULAR FILTRATION RATE > 60.0 (>49); GLUCOSE, FASTING 195 MG/DL (74-106); POTASSIUM SERUM 4.3 MMOL/L (3.5-5.1); SODIUM LEVEL 138 MMOL/L (136-145); TOTAL PROTEIN 5.9 G/DL (5.7-8.2)
[2024-01-22] MEDS: predniSONE 20 MG TAB PO SCH (15:49)
[2024-01-23] VITALS: O2SAT 97
[2024-01-23 03:14] VITALS: BP 131/70; TEMP 97.6; O2SAT 96
[2024-01-23 06:01] LABS: HEMATOCRIT 43.4 % (42.0-52.0); HEMOGLOBIN 13.1 g/dl (13.5-17.5); MEAN CORPUSCULAR HEMOGLOBIN 26.9 pg (27.0-33.0); MEAN CORPUSCULAR HGB CONC 30.2 g/dl (32.0-36.5); MEAN CORPUSCULAR VOLUME 89.1 fl (80.0-96.0); PLATELET COUNT, AUTOMATED 233 10^3/uL (150-450); RED BLOOD COUNT 4.87 10^6/uL (4.30-6.10); WHITE BLOOD COUNT 11.9 10^3/uL (4.0-10.0)
[2024-01-23 06:23] LABS: ALKALINE PHOSPHATASE 76 U/L (46-116); ALT/SGPT 46 U/L (7.0-40); AST/SGOT 20 U/L (<34); BILIRUBIN,TOTAL 0.4 MG/DL (0.3-1.2); BLOOD UREA NITROGEN 26 MG/DL (9-23); CALCIUM LEVEL 8.7 MG/DL (8.3-10.6); CARBON DIOXIDE LEVEL 36 MMOL/L (20-31); CHLORIDE LEVEL 103 MMOL/L (98-107); CREATININE FOR GFR 0.81 MG/DL (0.70-1.30); GLOMERULAR FILTRATION RATE > 60.0 (>49); GLUCOSE, FASTING 155 MG/DL (74-106); POTASSIUM SERUM 4.1 MMOL/L (3.5-5.1); SODIUM LEVEL 141 MMOL/L (136-145); TOTAL PROTEIN 5.4 G/DL (5.7-8.2)
[2024-01-23 07:00] VITALS: O2SAT 91
[2024-01-23 08:00] VITALS: BP 134/78; TEMP 97.4; O2SAT 92
[2024-01-23] MEDS ORDERED: CEFD1CAP9 PO (08:35)
[2024-01-23] MEDS ORDERED: PRED10TA2 PO (08:35)
[2024-01-23] MEDS ORDERED: DOXY100T PO (08:35)
[2024-01-23] MEDS ORDERED: PRED20TA PO (08:37)
== END 2024-01-23 14:14 | disposition home or self-care (01) | DRG 133 ==
LOC: M ED 08:36 → M ED INP 14:58 → M ICU 20:00 → M PCU 01-20 15:47
PROVIDERS: ADMIT Internal Medicine Pulmonary Disease; ATTEND Internal Medicine
PROC: 0BH17EZ Insertion of Endotracheal Airway into Trachea, Via Natural or Artificial Opening (ICD-10-PCS; principal; 2024-01-18)
PROC: 5A1945Z Respiratory Ventilation, 24-96 Consecutive Hours (ICD-10-PCS; 2024-01-18)
DX: J96.22 Acute and chronic respiratory failure with hypercapnia (principal); J15.69 Pneumonia due to other Gram-negative bacteria; G93.41 Metabolic encephalopathy; J44.0 Chronic obstructive pulmonary disease with (acute) lower respiratory infection; E87.29 Other acidosis; J44.1 Chronic obstructive pulmonary disease with (acute) exacerbation; E87.5 Hyperkalemia; S22.42XA Multiple fractures of ribs, left side, initial encounter for closed fracture; F41.9 Anxiety disorder, unspecified; F32.A Depression, unspecified; R10.12 Left upper quadrant pain; J96.21 Acute and chronic respiratory failure with hypoxia; E78.5 Hyperlipidemia, unspecified; Z87.891 Personal history of nicotine dependence; Z79.899 Other long term (current) drug therapy; X58.XXXA Exposure to other specified factors, initial encounter; Y92.9 Unspecified place or not applicable; Y93.9 Activity, unspecified; Y99.9 Unspecified external cause status

== ENCOUNTER → 2024-01-31 | Outpatient (CLI) | payer BC ==
[~2024-01-31] MED LIST changes: +ACET1TAB55 PO; +CEFD1CAP9 PO; +DOXY100T PO; +PRED10TA2 PO; +ZOLO100T PO
[2024-01-31 11:35] LABS: VENOUS BASE EXCESS 2.9 (-2.0-2.0); VENOUS HCO3 30.5 MMOL/L (23.0-27.0); VENOUS O2 SATURATION 98.9 % (60.0-80.0); VENOUS PARTIAL PRESSURE O2 162.9 mmHg (30.0-50.0); VENOUS PH 7.332 UNITS (7.330-7.430); VENOUS STANDARD HCO3 27.1 MMOL/L; VENOUS TOTAL CO2 32.4 MMOL/L (24.0-28.0)
[2024-01-31 11:47] LABS: BASO # 0.1 10^3/uL (0.0-0.2); BASO % 0.5 % (0.0-1.0); EOS # 0.1 10^3/uL (0.0-0.5); EOS % 0.6 % (0.0-3.0); LYMPH # 0.8 10^3/uL (1.5-5.0); LYMPH % 6.1 % (24.0-44.0); MEAN CORPUSCULAR HEMOGLOBIN 26.8 pg (27.0-33.0); MEAN CORPUSCULAR VOLUME 89.4 fl (80.0-96.0); MONO # 0.4 10^3/uL (0.0-0.8); MONO % 2.9 % (2.0-8.0); NEUTROPHILS # 11.4 10^3/uL (1.5-8.5); NEUTROPHILS % 85.3 % (36.0-66.0); PLATELET COUNT, AUTOMATED 237 10^3/uL (150-450); RED BLOOD COUNT 5.59 10^6/uL (4.30-6.10); WHITE BLOOD COUNT 13.3 10^3/uL (4.0-10.0)
[2024-01-31 12:14] LABS: C REACTIVE PROTEIN QUANTITATIV < 0.40 MG/DL (<1.0)
[2024-01-31 12:17] LABS: BLOOD UREA NITROGEN 21 MG/DL (9-23); CALCIUM LEVEL 9.6 MG/DL (8.3-10.6); CARBON DIOXIDE LEVEL 35 MMOL/L (20-31); CHLORIDE LEVEL 102 MMOL/L (98-107); CREATININE FOR GFR 0.78 MG/DL (0.70-1.30); GLOMERULAR FILTRATION RATE > 60.0 (>49); GLUCOSE, FASTING 117 MG/DL (74-106); POTASSIUM SERUM 5.3 MMOL/L (3.5-5.1); SODIUM LEVEL 139 MMOL/L (136-145)
[2024-01-31 12:22] LABS: PROCALCITONIN 0.06 ng/ml
== END ==
LOC: M LAB 10:18 → M PLALAB 10:18
PROVIDERS: ATTEND Family Medicine
DX: J96.21 Acute and chronic respiratory failure with hypoxia (principal)

== ENCOUNTER → 2024-07-12 | Outpatient (CLI) | payer BC, MEDICARE ==
[~2024-07-12] MED LIST changes: -ADV250INH INH; +ADVA1AER9 INH
[2024-07-12 17:50] LABS: BASO # 0.1 10^3/uL (0.0-0.2); BASO % 0.9 % (0.0-1.0); EOS # 0.3 10^3/uL (0.0-0.5); EOS % 2.6 % (0.0-3.0); HEMATOCRIT 48.7 % (42.0-52.0); HEMOGLOBIN 15.2 g/dl (13.5-17.5); LYMPH # 2.1 10^3/uL (1.5-5.0); LYMPH % 19.3 % (24.0-44.0); MEAN CORPUSCULAR HEMOGLOBIN 27.3 pg (27.0-33.0); MEAN CORPUSCULAR HGB CONC 31.2 g/dl (32.0-36.5); MEAN CORPUSCULAR VOLUME 87.4 fl (80.0-96.0); MONO # 1.2 10^3/uL (0.0-0.8); MONO % 10.6 % (2.0-8.0); NEUTROPHILS # 6.9 10^3/uL (1.5-8.5); NEUTROPHILS % 63.8 % (36.0-66.0); PLATELET COUNT, AUTOMATED 331 10^3/uL (150-450); RED BLOOD COUNT 5.57 10^6/uL (4.30-6.10); WHITE BLOOD COUNT 10.8 10^3/uL (4.0-10.0)
[2024-07-12 18:21] LABS: BLOOD UREA NITROGEN 21 MG/DL (9-23); C REACTIVE PROTEIN QUANTITATIV 0.98 MG/DL (<1.0); CALCIUM LEVEL 9.4 MG/DL (8.3-10.6); CARBON DIOXIDE LEVEL 35 MMOL/L (20-31); CHLORIDE LEVEL 98 MMOL/L (98-107); CREATININE FOR GFR 0.86 MG/DL (0.70-1.30); GLOMERULAR FILTRATION RATE > 60.0 (>49); GLUCOSE, FASTING 81 MG/DL (74-106); POTASSIUM SERUM 4.9 MMOL/L (3.5-5.1); SODIUM LEVEL 141 MMOL/L (136-145)
[2024-07-12 18:33] LABS: PROCALCITONIN 0.08 ng/ml
== END ==
LOC: M PLAIMG 15:41
PROVIDERS: ATTEND Family Medicine
DX: R06.02 Shortness of breath (principal); J96.21 Acute and chronic respiratory failure with hypoxia

== ENCOUNTER → 2024-09-10 | Outpatient (CLI) | payer MEDICARE | LOC: M RAD 06:19 | PROVIDERS: ATTEND Family Medicine | DX: Z13.6 Encounter for screening for cardiovascular disorders (principal) ==

== ENCOUNTER → 2025-02-26 | Outpatient (CLI) | payer MEDICARE, MEDICAID | LOC: M RAD 09:43 | PROVIDERS: ATTEND Internal Medicine Pulmonary Disease | DX: Z12.2 Encounter for screening for malignant neoplasm of respiratory organs (principal); Z87.891 Personal history of nicotine dependence; J84.10 Pulmonary fibrosis, unspecified; I70.0 Atherosclerosis of aorta; I25.10 Atherosclerotic heart disease of native coronary artery without angina pectoris ==

== ENCOUNTER → 2025-04-26 | Outpatient (CLI) | payer MEDICARE, MEDICAID ==
[2025-04-26 17:49] LABS: ESTIMATED AVERAGE GLUCOSE 148.0 MG/DL (60-110)
[2025-04-26 17:50] LABS: C REACTIVE PROTEIN QUANTITATIV < 0.50 MG/DL (<1.0)
[2025-04-26 17:51] LABS: ALT/SGPT 35 U/L (7.0-40); AST/SGOT 20 U/L (<34); CALCIUM LEVEL 9.1 MG/DL (8.3-10.6); CARBON DIOXIDE LEVEL 32 MMOL/L (20-31); CHLORIDE LEVEL 101 MMOL/L (98-107); CREATININE FOR GFR 1.29 MG/DL (0.70-1.30); GLOMERULAR FILTRATION RATE 61.5 (>49); POTASSIUM SERUM 4.8 MMOL/L (3.5-5.1); SODIUM LEVEL 143 MMOL/L (136-145)
[2025-04-26 17:53] LABS: BASO # 0.1 10^3/uL (0.0-0.2); BASO % 0.7 % (0.0-1.0); EOS # 0.1 10^3/uL (0.0-0.5); EOS % 1.2 % (0.0-3.0); LYMPH # 2.1 10^3/uL (1.5-5.0); LYMPH % 17.6 % (24.0-44.0); MONO # 0.9 10^3/uL (0.0-0.8); MONO % 7.4 % (2.0-8.0); NEUTROPHILS # 8.4 10^3/uL (1.5-8.5); NEUTROPHILS % 70.1 % (36.0-66.0); PLATELET COUNT, AUTOMATED 220 10^3/uL (150-450)
== END ==
LOC: M PLAIMG 15:59
PROVIDERS: ATTEND Family Medicine
DX: J96.21 Acute and chronic respiratory failure with hypoxia (principal); E66.01 Morbid (severe) obesity due to excess calories; Z13.1 Encounter for screening for diabetes mellitus; J44.1 Chronic obstructive pulmonary disease with (acute) exacerbation; J84.10 Pulmonary fibrosis, unspecified; Z68.41 Body mass index [BMI] 40.0-44.9, adult